=== PATIENT | female | born 1950 | race Caucasian/White ===

== ENCOUNTER 2020-08-19 12:37 | Outpatient (CLI) | payer MEDICARE, SELFPAY ==
--- NOTE | ~2020-08-19 | CT_ITS ---
EXAMINATION: CT abdomen pelvis wo/w con DATE: 08/19/2020 13:38 INDICATION: Microscopic hematuria TECHNIQUE: Computed tomography (CT) of the abdomen and pelvis was performed without and subsequently with 130 cc Omnipaque 350 intravenous contrast. Automated exposure control and iterative reconstructi on technique were employed. Exam dose: 1449.78 mGy-cm total exam DLP. COMPARISON: 08/19/2020 KUB FINDINGS: There is mild discoid atelectasis or scarring in the lower lobes, left greater than right. No consolidation at the lung bases. Normal heart size. No pericardial or pleural effusion. Status post cholecystectomy. There is mild prominence of the intrahepatic and extrahepatic bile ducts , likely due to the cholecystectomy. No pancreatic duct dilatation. No hepatic, pancreatic, splenic, and adrenal or solid renal space-occupying mass lesion is evident. There are several renal cysts, the largest on the right approximately 6.4 mm, the largest on the left approximately 4 mm. No urinary tract calculus or hydroureteronephrosis. The urinary bladder is unremarkable. Retroverted uterus. No adnexal mass lesion is evident. There is atherosclerotic calcification of the abdominal aorta but no aneurysm. No intraperitoneal or retroperitoneal or pelvic mass lesion or adenopathy or ascites. Small sliding hiatal hernia. There are numerous diverticula of the sigmoid colon; no CT evidence of diverticulitis. There is a pro minent amount of fecal material throughout the colon. No bowel obstruction. The appendix appears to b e surgically absent. There is some fluid distended small bowel loops, without abnormal dilatation or wall thickening. No pneumatosis or intraperitoneal free air. There is diffuse osteopenia. There are degenerative changes of the thoracic and lumbar spine. No suspicious osteolytic or osteobla stic lesions. IMPRESSION: Bilateral small renal cysts No urinary tract mass lesion, calculus or hydroureteronephrosis Small sliding hiatal hernia Status post cholecystectomy Diverticulosis of the colon; no CT evidence of diverticulitis Reviewed, dictated and finalized at Location A. Reviewed, dictated and finalized at location B. OR INFRASTRUCTURE ENGINEER
--- NOTE | ~2020-08-19 | XR_ITS ---
EXAMINATION: XR abdomen/kub 1V EXAM DATE: 08/19/2020 13:01 INDICATION: Microscopic hematuria. TECHNIQUE: Frontal projection of the upper abdomen, frontal projection lower abdomen/pelvis for inter pretation. Correlation is made to CT abdomen same day. FINDINGS: There is moderate lumbar levoscoliosis. Moderate amount of colonic stool and gas. No small bowel obstruction. There is no organomegaly. Calcifications in the pelvis are believed to be phlebol iths. There are cholecystectomy clips. IMPRESSION: Unremarkable XR abdomen/kub 1V exam. Reviewed, dictated and finalized at location A. DBIRTH EDUCATOR
[2020-08-19 13:16] LABS: Estimated Glomerular Filt Rate > 60
== END 2020-08-19 12:38 | disposition home or self-care (01) ==
PROVIDERS: PCP Internal Medicine; Visit Provider Nurse Practitioner Family
DX: R31.29 Other microscopic hematuria (principal); Z87.440 Personal history of urinary (tract) infections; N28.1 Cyst of kidney, acquired; Z90.49 Acquired absence of other specified parts of digestive tract; K46.9 Unspecified abdominal hernia without obstruction or gangrene; K44.9 Diaphragmatic hernia without obstruction or gangrene; I70.0 Atherosclerosis of aorta; N85.4 Malposition of uterus; M47.815 Spondylosis without myelopathy or radiculopathy, thoracolumbar region; M41.9 Scoliosis, unspecified
CPT/HCPCS: 74018; 74178; Q9967

== ENCOUNTER 2021-03-11 12:55 | Outpatient (CLI) | payer MEDICARE, SELFPAY ==
--- NOTE | ~2021-03-11 | MM_ITS ---
EXAMINATION: MM screening sally BI w anai HISTORY: Screening mammogram TECHNIQUE: Craniocaudal and mediolateral oblique 3-D tomosynthesis images were obtained and synthetic 2-D images were generated. CAD analysis was submitted and interpreted. COMPARISON: 08/03/2019, 03/13/2018, bilateral digital screening mammogram examinations BREAST PARENCHYMAL COMPOSITION: The breasts are almost entirely fatty. FINDINGS: There is no evidence of suspicious mass, calcification, or architectural distortion to sugg est malignancy in either breast. There has been no suspicious interval change. IMPRESSION: 1. No mammographic evidence of malignancy. 2. Recommend routine screening mammography in one year. BI-RADS Category 1: Negative Reviewed, dictated and finalized at location A.
--- NOTE | ~2021-03-11 | DEXA_ITS ---
Bone Density Report Name: Leana Grayson Age: 71 Sex: Female Ethnicity: White Date of : 1950 Indication: osteopenia; height loss; Referring Provider: Jerrell Javier Study: Bone densitometry was performed. Exam Date: March 11, 2021 Accession number: [id number] Bone Density: Region BMD T-score Z-score Classification AP Spine (L1, L2) 0.858 -1.1 0.9 Osteopenia Femoral Neck (Left) 0.608 -2.2 -0.3 Osteopenia Total Hip (Left) 0.736 -1.7 -0.1 Osteopenia Total Hip Bilateral Avg 0.739 -1.7 -0.1 Osteopenia Femoral Neck (Right) 0.690 -1.4 0.4 Osteopenia Total Hip (Right) 0.741 -1.6 -0.1 Osteopenia World Health Organization criteria for BMD impression classify patients as: Normal (T-score at or above -1.0), Osteopenia (T-score between -1.0 and -2.5), or Osteoporosis (T-score at or below -2.5). 10-year Fracture Risk(1): Major Osteoporotic Fracture 12% Hip Fracture 2.7% Reported Risk Factors: [place] (), Neck BMD=0.608, BMI=29.5 (1) FRAX(R) Version 3.08. Fracture probability calculated for an untreated patient. Fracture probability may be lower if the patient has received treatment. Previous Exams: Region Exam Age BMD T-score BMD Change BMD Change Date g/cm2 vs Baseline vs Previous AP Spine(L1, L2) 03/11/2021 71 0.858 -1.1 0.029(3.6%)* 0.029(3.6%)* 03/13/2018 68 0.829 -1.4 Total Hip(Left) 03/11/2021 71 0.736 -1.7 -0.022(-2.9%) -0.022(-2.9%) 03/13/2018 68 0.757 -1.5 Total Hip(Right) 03/11/2021 71 0.741 -1.6 -0.052(-6.6%)* -0.052(-6.6%)* 03/13/2018 68 0.793 -1.2 *Denotes significance at 95% confidence level, LSC for AP Spine = 0.022 g/cm2, LSC for Total Hip = 0.027 g/cm2 Clinical Information Provided by Patient: Has used the following medications: HRT (i.e. estrogen/hormone therapy), Vitamin D, Calcium Patient maximum height was 65 Menopause Age: 45 Drinks caffeinated beverages Onset of menses at age 13 Number of children 2 Impression: The patient has low bone mass, based on the Left Femoral Neck T-score. The patient has an estimated ten-year risk of hip fracture of 2.7% and an estimated ten-year risk of major fracture of 12%, based on the WHO FRAX algorithm. The BMD for the Total Hip(Right) decreased, changing by -6.6% since the last DXA exam. Discussion: BONE DENSITY IS LOW AT ONE OR MORE SKELETAL SITES. This patient's lowest T-score is low at one or more skeletal sites. It meets the World Health [place]ga
== END 2021-03-11 12:56 | disposition home or self-care (01) ==
PROVIDERS: PCP Internal Medicine; Visit Provider Physician Assistant
DX: Z12.31 Encounter for screening mammogram for malignant neoplasm of breast (principal); Z78.0 Asymptomatic menopausal state; M85.88 Other specified disorders of bone density and structure, other site; M85.852 Other specified disorders of bone density and structure, left thigh; M85.851 Other specified disorders of bone density and structure, right thigh
CPT/HCPCS: 77063; 77067; 77080

== ENCOUNTER 2022-04-29 14:56 | Outpatient (CLI) | payer MEDICARE, SELFPAY ==
--- NOTE | ~2022-04-29 | MM_ITS ---
EXAMINATION: MM screening sally BI w anai HISTORY: Screening mammogram TECHNIQUE: Craniocaudal and mediolateral oblique 3-D tomosynthesis images were obtained and synthetic 2-D images were generated. CAD analysis was submitted and interpreted. COMPARISON: 03/11/2021, 08/03/2019, 03/13/2018 bilateral screening mammogram examinations BREAST PARENCHYMAL COMPOSITION: The breasts are almost entirely fatty. FINDINGS: There is no evidence of suspicious mass, calcification, or architectural distortion to sugg est malignancy in either breast. There has been no suspicious interval change. IMPRESSION: 1. No mammographic evidence of malignancy. 2. Recommend routine screening mammography in one year. BI-RADS Category 1: Negative Reviewed, dictated and finalized at location B.
== END 2022-04-29 14:57 | disposition home or self-care (01) ==
LOC: ANHIMG 15:00
PROVIDERS: PCP Physician Assistant; Visit Provider Obstetrics & Gynecology Gynecologic Oncology
DX: Z12.31 Encounter for screening mammogram for malignant neoplasm of breast (principal)
CPT/HCPCS: 77063; 77067

== ENCOUNTER 2023-04-25 09:06 | Outpatient (CLI) | payer MEDICARE, SELFPAY ==
--- NOTE | ~2023-04-25 | NM_ITS ---
EXAMINATION: NM mateo stress w perfusion DATE: 04/25/2023 14:02 CDT INDICATION: Chest pain TECHNIQUE: Rest images were obtained following intravenous administration of 10.3 mCi Tc99m tetrofosm in (Myoview). The patient was infused intravenously with Lexiscan (regadenoson). Then, 32 mCi Tc99m t etrofosmin (Myoview) was administered intravenously, and stress images were obtained. Data was recons tructed into short axis and horizontal and vertical long axis SPECT images. Gated SPECT images were a lso obtained. COMPARISON: None. FINDINGS: There is no definite reversible or fixed perfusion abnormality to suggest ischemia or infar ction. There is no segmental wall motion abnormality. Left ventricular ejection fraction measures 8 4%. IMPRESSION: 1. No definite ischemia or infarct. 2. Normal left ventricular ejection fraction measuring 84%. Reviewed, dictated and finalized at location A.
--- NOTE | 2023-04-25 09:36 | EST_ITS ---
Patient Info Name: Leana Grayson Age: 73 years : 1950 Gender: Female Ht: 63 in Wt: 157 lbs BSA: 1.80 m2 HR: 55 bpm BP: 140 / 80 mmHg Heart Rhythm: Sinus Rhythm Exam Date: 04/25/2023 10:33 AM Exam Location: [facility] Stress Patient Status: Outpatient Admit Date: 04/25/2023 Staff Ordering Physician: Jerrell Javier PA-C Attending Provider: Jerrell Javier PA-C Exercise Technologist: Elena Laboy CT Exercise Physician: Rickey Crawford DO Exam Type: CA stress mateo w NM Study Info Indications R07.9 - Chest pain, unspecified A regadenoson stress test was performed. Summary 1. 1. Negative lexiscan stress test for ischemic ST changes by ECG criteria. 2. 2. Baseline hypertension. 3. 3. Nuclear scan to follow and will be reported separately. Please correlate with it. 4. 4. Patient informed of the above results. Protocol: Lexiscan Stress ECG Details Stage: REST Duration (min): 13 min : 13 sec HR (bpm): 53 SBP (mmHg): 206 DBP (mmHg): 91 Stage: REST Duration (min): 21 min : 23 sec HR (bpm): 52 SBP (mmHg): 148 DBP (mmHg): 80 Stage: STAGE 1 Duration (min): 1 min : 0 sec HR (bpm): 76 SBP (mmHg): 148 DBP (mmHg): 80 Stage: RECOVERY Duration (min): 1 min : 0 sec HR (bpm): 89 SBP (mmHg): 148 DBP (mmHg): 80 Stage: RECOVERY Duration (min): 2 min : 0 sec HR (bpm): 84 SBP (mmHg): 148 DBP (mmHg): 80 Stage: RECOVERY Duration (min): 3 min : 0 sec HR (bpm): 85 SBP (mmHg): 148 DBP (mmHg): 80 Stage: RECOVERY Duration (min): 4 min : 0 sec HR (bpm): 85 SBP (mmHg): 148 DBP (mmHg): 80 Stage: RECOVERY Duration (min): 4 min : 23 sec HR (bpm): 78 SBP (mmHg): 140 DBP (mmHg): 80 Rest HR: 52 bpm Peak HR: 90 bpm Rest Sys BP: 148 mmHg Peak Sys BP: 140 mmHg Max Pred HR: 147 bpm % Max Pred HR: 61 % Target HR: 125 bpm Max RPP: 12,600 bpm*mmHg Termination Reason: Completed protocol Cardiac Symptoms: Shortness of breath Total Time: 1 min : 0 sec Rest Downey BP: 94 mmHg Peak Downey BP: 80 mmHg Total Dose: 0.4 mg Resting ECG Sinus bradycardia. Stress ECG No ST changes. Arrhythmias None. Report Signatures
== END 2023-04-25 09:07 | disposition home or self-care (01) ==
PROVIDERS: PCP Internal Medicine; Visit Provider Physician Assistant
DX: R07.9 Chest pain, unspecified (principal)
CPT/HCPCS: 78452; 93017; A9502; J2785

== ENCOUNTER 2023-07-07 15:08 | Outpatient (CLI) | payer MEDICARE, SELFPAY ==
--- NOTE | ~2023-07-07 | DEXA_ITS ---
Bone Density Report Name: HARRISON WHITLEY Age: 73 Sex: Female Ethnicity: White Date of : 1950 Indication: osteopenia; height loss; hysterectomy; postmenopausal Referring Provider: SERVANDO DICKERSON Study: Bone densitometry was performed. Exam Date: July 07, 2023 Accession number: [id number] Bone Density: Region BMD T-score Z-score Classification AP Spine(L1-L4) 0.813 -2.1 0.2 Osteopenia Femoral Neck (Left) 0.578 -2.4 -0.5 Osteopenia Total Hip (Left) 0.713 -1.9 -0.2 Osteopenia Femoral Neck (Right) 0.674 -1.6 0.4 Osteopenia Total Hip (Right) 0.682 -2.1 -0.4 Osteopenia Total Hip Mean 0.697 -2.0 -0.3 Osteopenia World Health Organization criteria for BMD impression classify patients as: Normal (T-score at or above -1.0), Osteopenia (T-score between -1.0 and -2.5), or Osteoporosis (T-score at or below -2.5). 10-year Fracture Risk(1): Major Osteoporotic Fracture 15% Hip Fracture 3.9% Reported Risk Factors: [place] (), Neck BMD=0.578, BMI=27.8 (1) FRAX(R) Version 3.08. Fracture probability calculated for an untreated patient. Fracture probability may be lower if the patient has received treatment. Previous Exams: Region Exam Age BMD T-score BMD Change BMD Change Date g/cm2 vs Baseline vs Previous AP Spine (L1-L4) 07/07/2023 73 0.813 -2.1 -0.028 (-3.3%) -0.028 (-3.3%) 03/13/2018 68 0.841 -1.9 Total Hip(Left) 07/07/2023 73 0.713 -1.9 -0.045 (-5.9%) -0.023 (-3.2%) 03/11/2021 71 0.736 -1.7 -0.022 (-2.9%) -0.022 (-2.9%) 03/13/2018 68 0.757 -1.5 Total Hip(Right) 07/07/2023 73 0.682 -2.1 -0.111 (-14.0% -0.059 (-7.9%) 03/11/2021 71 0.741 -1.6 -0.052 (-6.6%) -0.052 (-6.6%) 03/13/2018 68 0.793 -1.2 *Denotes significance at 95% confidence level, LSC for AP Spine = 0.022 g/cm2, LSC for Total Hip = 0.027 g/cm2 Clinical Information Provided by Patient: Has used the following medications: Vitamin D, Calcium Has the following medical conditions: Hysterectomy Patient maximum height was 64 Menopause Age: 45 Onset of menses at age 13 Number of children 2 Impression: The patient has low bone mass, based on the Left Femoral Neck T-score. The patient has an estimated ten-year risk of hip fracture of 3.9% and an estimated ten-year risk of major fracture of 15%, based on the WHO FRAX algorithm. The BMD for the AP Spine (L1-L4) decreased, changing by -3.3% since the last DXA exam. The BMD f
--- NOTE | ~2023-07-07 | MM_ITS ---
EXAMINATION: MM screening [facility] BI w anai HISTORY: Screening mammogram TECHNIQUE: Craniocaudal and mediolateral oblique 3-D tomosynthesis images were obtained and synthetic 2-D images were generated. CAD analysis was submitted and interpreted. COMPARISON: 04/29/2022, 03/11/2021, 08/03/2019 BREAST PARENCHYMAL COMPOSITION: There are scattered areas of fibroglandular density. FINDINGS: No suspicious mass, calcification, or architectural distortion are identified in either sandy ast to suggest malignancy. There has been no suspicious interval change. IMPRESSION: 1. No mammographic evidence of malignancy. 2. Recommend routine screening mammography in one year. BI-RADS Category 1: Negative Reviewed, dictated and finalized at location A.
== END 2023-07-07 15:09 | disposition home or self-care (01) ==
PROVIDERS: PCP Internal Medicine; Visit Provider Obstetrics & Gynecology Gynecologic Oncology
DX: Z12.31 Encounter for screening mammogram for malignant neoplasm of breast (principal); M85.88 Other specified disorders of bone density and structure, other site; M85.852 Other specified disorders of bone density and structure, left thigh; M85.851 Other specified disorders of bone density and structure, right thigh
CPT/HCPCS: 77063; 77067; 77080

== ENCOUNTER 2024-03-06 14:01 | Outpatient (CLI) | payer MEDICARE, SELFPAY ==
--- NOTE | ~2024-03-06 | XR_ITS ---
XR abdomen/kub 1V 03/06/2024 14:28 INDICATION: Left renal stone TECHNIQUE: KUB COMPARISON: 08/19/2020 FINDINGS: Bowel gas pattern is normal. Moderate colonic fecal loading. There are cholecystectomy clip s. Colonic fecal loading. There is no evidence of free air, mass, organomegaly, ascites or obstructio n. No abnormal calculi are seen. The bones appear intact. There are cholecystectomy clips. There is levoscoliosis of the lumbar spine. IMPRESSION: 1: No acute abdominal abnormality identified. Reviewed, dictated and finalized at location B.
== END 2024-03-06 14:02 | disposition home or self-care (01) ==
LOC: ANHIMG 14:02
PROVIDERS: PCP Internal Medicine; Visit Provider Nurse Practitioner Family
DX: N20.0 Calculus of kidney (principal)
CPT/HCPCS: 74018

== ENCOUNTER 2024-07-18 13:18 | Outpatient (CLI) | payer MEDICARE, SELFPAY ==
--- NOTE | ~2024-07-18 | MM_ITS ---
EXAMINATION: MM screening [facility] BI w anai HISTORY: Screening TECHNIQUE: Craniocaudal and mediolateral oblique 3-D tomosynthesis images were obtained and synthetic 2-D images were generated. CAD analysis was submitted and interpreted. COMPARISON: Comparison to multiple prior studies sequentially, with oldest reviewed study dated 05/2017. BREAST PARENCHYMAL COMPOSITION: Not Dense: The breasts are almost entirely fatty. FINDINGS: There is no evidence of suspicious mass, calcification, or architectural distortion to sugg est malignancy in either breast. There has been no suspicious interval change. IMPRESSION: 1. No mammographic evidence of malignancy. 2. Recommend routine screening mammography in one year. BI-RADS Category 1: Negative Reviewed, dictated and finalized at location B.
== END 2024-07-18 13:19 | disposition home or self-care (01) ==
LOC: ANHIMG 13:20
PROVIDERS: PCP Family Medicine; Visit Provider Student in an Organized Health Care Education/Training Program
DX: Z12.31 Encounter for screening mammogram for malignant neoplasm of breast (principal)
CPT/HCPCS: 77063; 77067

== ENCOUNTER 2025-02-14 00:39 | Day surgery (SDC) | payer MEDICARE, SELFPAY ==
[2025-02-05 10:04] VITALS: BMI 26.6
--- OUTSIDE RECORDS SUMMARY | 2025-02-14 00:42 | XMS_ITS | Encounter Summary ---
Author Organization [facility] Address 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 Gender Identity Not on file Sexual Orientation Not on file documented as of this encounter Plan of Treatment Not on file documented as of this encounter Procedures Procedure Name Priority Date/Time Associated Diagnosis Comments US BREAST UNI LEFT COMPLETE Timed Study 05/14/2009 9:31 AM CDT MAMMO DIAGNOSTIC UNI LEFT W OR WO CAD Timed Study 05/14/2009 9:31 AM CDT documented in this encounter Results * US BREAST UNILATERAL LEFT (05/14/2009 9:31 AM CDT) Anatomical Region Laterality Modality Breast Left Other 05/14/2009 9:31 AM CDT Narrative 05/15/2009 7:34 AM CDT [facility] [address] [place], [place] [address] Admit Date: 05/14/2009 HARRISON MARCUM Sex: F Admit Prov: CHAVO TONEY Date: 1950 Primary Care Prov: OMERO BARRAGAN CMRN: [id number] [id number] IM[facility] Ordering Prov: CHAVO TONEY Accession Number: [id number] Interpretation LEFT DIAGNOSTIC DIGITAL MAMMOGRAMS WITH COMPUTER ASSISTED DIAGNOSIS AND LEFT BREAST ULTRASOUND 05/14/2009 HISTORY: The patient had an abnormal screening mammogram which demonstrated a left breast mass. Technique: Left breast full field digital diagnostic mammogram was performed. CAD was utilized. Comparison is made with previous studies dated May 2009, May 2008, April 2007 and May 2005. BREAST COMPOSITION: Scattered fibroglandular densities. Findings: Within the upper inner quadrant of the left breast, a 6 mm partially circumscribed and partially obscured mass is identified. Ultrasound of this finding is warranted. No other dominant masses, areas of asymmetry or suspicious clustered microcalcifications are identified within the left breast. The CAD system detects no other significant abnormalities. Ultrasound of the upper quadrant of the left breast was performed and demonstrates a 5 x 6 mm cluster of cysts. Overall assessment: BI-RADS category 2. Benign findings. Recommendation: Annual mammography is recommended. Dictated by: SRI BOTELLO Electronically signed by: SRI BOTELLO 05/15/2009 07:34 Transcribed: 05/14/2009 10:07 AMK Procedure Note Sri Botello - 05/15/2009 [facility] [address] [place], [place] [address] Admit Date: 05/14/2009 HARRISON MARCUM Sex: F Admit Prov: CHAVO TONEY Date: 1950 Primary Care Prov: YUNG OMERO Roque CMRN: [id number] [facility]: [id number] IMAGING SERVICES Ordering Prov: BRAVOCHAVO MARTÍNEZ Interpretation LEFT DIAGNOSTIC DIGITAL MAMMOGRAMS WITH COMPUTER ASSISTED DIAGNOSISAND LEFT BREAST ULTRASOUND 05/14/2009 HISTORY: The patient had an abnormal screening mammogram whichdemonstrated a left breast mass. Technique: Left breast full field digital diagnostic mammogram was performed. CAD was utilized. Comparison is made with previous studiesdated May 2009, May 2008, April 2007 and May 2005. BREAST COMPOSITION: Scattered fibroglandular densities. Findings: Within the upper inner quadrant of the left breast, a 6mm partially circumscribed and partially obscured mass is identified. Ultrasound of this finding is warranted. No other dominant masses,areas of asymmetry or suspicious clustered microcalcifications are identifiedwithin the left breast. The CAD system detects no other significantabnormalities. Ultrasound of the upper quadrant of the left breast was performedand demonstrates a 5 x 6 mm cluster of cysts. Overall assessment: BI-RADS category 2. Benign findings. Recommendation: Annual mammography is recommended. Dictated by: SRI BOTELLO Electronically signed by: SRI BOTELLO 05/15/2009 07:34 Transcribed: 05/14/2009 10:07 AMK us Chavo Toney MD US ORDERABLES Final Result * MAMMO DIGITAL DIAG UNI LEFT (05/14/2009 9:31 AM CDT) Anatomical Region Laterality Modality Breast Left Other 05/14/2009 9:31 AM CDT Narrative 05/15/2009 7:34 AM CDT [address] [address] Admit Date: 05/14/2009 HARRISON MARCUM Sex: F Admit Prov: CHAVO TONEY Date: 1950 Primary Care Prov: OMERO BARRAGAN CMRN: [id number] Room: [facility] SSN: [id number] IMAGING SERVICES Ordering Prov: CHAVO TONEY Accession Number: [id number] Interpretation LEFT DIAGNOSTIC DIGITAL MAMMOGRAMS WITH COMPUTER ASSISTED DIAGNOSIS AND LEFT BREAST ULTRASOUND 05/14/2009 HISTORY: The patient had an abnormal screening mammogram which demonstrated a left breast mass. Technique: Left breast full field digital diagnostic mammogram was performed. CAD was utilized. Comparison is made with previous studies dated May 2009, May 2008, April 2007 and May 2005. BREAST COMPOSITION: Scattered fibroglandular densities. Findings: Within the upper inner quadrant of the left breast, a 6 mm partially circumscribed and partially obscured mass is identified. Ultrasound of this finding is warranted. No other dominant masses, areas of asymmetry or suspicious clustered microcalcifications are identified within the left breast. The CAD system detects no other significant abnormalities. Ultrasound of the upper quadrant of the left breast was performed and demonstrates a 5 x 6 mm cluster of cysts. Overall assessment: BI-RADS category 2. Benign findings. Recommendation: Annual mammography is recommended. Assessment BIRADS: 2-Benign finding Recommendation: Normal interval follow-up Dictated by: SRI BOTELLO Electronically signed by: SRI BOTELLO 05/15/2009 07:34 Transcribed: 05/14/2009 10:07 AMK Procedure Note Sri Botello - 05/15/2009 [id number] [place], [place] [address] Admit Date: 05/14/2009 HARRISON MARCUM Sex: F Admit Prov: CHAVO TONEY Date: 1950 Primary Care Prov: YUNG OMERO J CMRN: [id number] [id number] IMAGING SERVICES Ordering Prov: CHAVO TONEY Interpretation LEFT DIAGNOSTIC DIGITAL MAMMOGRAMS WITH COMPUTER ASSISTED DIAGNOSISAND LEFT BREAST ULTRASOUND 05/14/2009 HISTORY: The patient had an abnormal screening mammogram whichdemonstrated a left breast mass. Technique: Left breast full field digital diagnostic mammogram was performed. CAD was utilized. Comparison is made with previous studiesdated May 2009, May 2008, April 2007 and May 2005. BREAST COMPOSITION: Scattered fibroglandular densities. Findings: Within the upper inner quadrant of the left breast, a 6mm partially circumscribed and partially obscured mass is identified. Ultrasound of this finding is warranted. No other dominant masses,areas of asymmetry or suspicious clustered microcalcifications are identifiedwithin the left breast. The CAD system detects no other significantabnormalities. Ultrasound of the upper quadrant of the left breast was performedand demonstrates a 5 x 6 mm cluster of cysts. Overall assessment: BI-RADS category 2. Benign findings. Recommendation: Annual mammography is recommended. Assessment BIRADS: 2-Benign finding Recommendation: Normal interval follow-up Dictated by: SRI BOTELLO Electronically signed by: SRI BOTELLO 05/15/2009 07:34 Transcribed: 05/14/2009 10:07 AMK us Chavo Toney MD MAMMO ORDERABLES Final Result documented in this encounter Visit Diagnoses Diagnosis Abnormal mammogram, unspecified documented in this encounter Care Teams Geotechnical Engineer Relationship Specialty Start Date End Date Christoph Delarosa MD PCP - General Internal Medicine 06/19/14 documented as of this encounter
--- OUTSIDE RECORDS SUMMARY | 2025-02-14 00:42 | XMS_ITS | Encounter Summary ---
Author Organization [facility] Address 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
--- OUTSIDE RECORDS SUMMARY | 2025-02-14 00:42 | XMS_ITS | Encounter Summary ---
Author Organization [facility] Address 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 Gender Identity Not on file Sexual Orientation Not on file documented as of this encounter Plan of Treatment Not on file documented as of this encounter Procedures Procedure Name Priority Date/Time Associated Diagnosis Comments MAMMO SCREEN BILAT W OR WO CAD Routine 05/05/2009 12:34 PM CDT documented in this encounter Results * MAMMO DIGITAL SCREEN BILAT (05/05/2009 12:34 PM CDT) Anatomical Region Laterality Modality Breast Bilateral Other 05/05/2009 12:3 4 PM CDT Narrative 05/07/2009 8:23 AM CDT [address] [address] Admit Date: 05/05/2009 HARRISON MARCUM Sex: F Admit Prov: CHAVO TONEY Date: 1950 Primary Care Prov: OMERO BARRAGAN CMRN: [id number] Room: SMITHA N: [id number] IMAGING SERVICES Ordering Prov: CHAVO TONEY Accession Number: [id number] Interpretation Bilateral full field digital screening mammograms with computer aided diagnosis History: Routine screening. Technique: Craniocaudal and mediolateral oblique projections of both breasts were obtained. CAD was utilized. Comparison is made with previous studies dated 05/2008, 04/2007 and 05/2005. BREAST COMPOSITION: Scattered fibroglandular densities. Findings: A mass is identified in the medial aspect of the left breast. This is believed to be at the level of the nipple on the mediolateral oblique projection. The patient should return for additional images and possibly ultrasound of this finding. No other dominant masses, areas of asymmetry or suspicious clustered microcalcifications are identified within either breast. The CAD system detects no other significant abnormalities. Overall assessment: BI-RADS category 0. Needs additional imaging evaluation. Recommendation: It is recommended the patient return for additional images of the suspected mass in upper inner quadrant of the left breast. Assessment BIRADS: 0-Incomplete: Need additional imaging evaluation Recommendation: Additional projections Dictated by: SRI BOTELLO Electronically signed by: SRI BOTELLO 05/07/2009 08:22 Transcribed: 05/06/2009 20:06 AMK Procedure Note Sri Botello - 05/07/2009 [address] [place], [place] [address] Admit Date: 05/05/2009 HARRISON MARCUM Sex: F Admit Prov: CHAVO TONEY Date: 1950 Primary Care Prov: OMERO BARRAGAN CMRN: [id number] Room: Miriam SSN: [id number] IMAGING SERVICES Ordering Prov: CHAVO TONEY Interpretation Bilateral full field digital screening mammograms with computeraided diagnosis History: Routine screening. Technique: Craniocaudal and mediolateral oblique projections ofboth breasts were obtained. CAD was utilized. Comparison is made withprevious studies dated 05/2008, 04/2007 and 05/2005. BREAST COMPOSITION: Scattered fibroglandular densities. Findings: A mass is identified in the medial aspect of the leftbreast. This is believed to be at the level of the nipple on themediolateral oblique projection. The patient should return for additional imagesand possibly ultrasound of this finding. No other dominant masses, areasof asymmetry or suspicious clustered microcalcifications are identifiedwithin either breast. The CAD system detects no other significantabnormalities. Overall assessment: BI-RADS category 0. Needs additional imaging evaluation. Recommendation: It is recommended the patient return for additionalimages of the suspected mass in upper inner quadrant of the left breast. Assessment BIRADS: 0-Incomplete: Need additional imagingevaluation Recommendation: Additional projections Dictated by: SRI BOTELLO Electronically signed by: SRI BOTELLO 05/07/2009 08:22 Transcribed: 05/06/2009 20:06 AMK Chavo Toney MD MAMMO ORDERABLES Final Result documented in this encounter Visit Diagnoses Diagnosis Other screening mammogram documented in this encounter Care Teams Yarn Weight And Strength Tester Relationship Specialty Start Date End Date Christoph Delarosa MD PCP - General Internal Medicine 06/19/14 documented as of this encounter
--- OUTSIDE RECORDS SUMMARY | 2025-02-14 00:42 | XMS_ITS | Encounter Summary ---
Author Organization [facility] Address [address] [place] [address] Care Team Providers Care Caster Investment Casting Name Role Phone Christoph Delarosa MD Primary Care Provider [phone] Encounter Details Date Type Department Care Team (Late st Contact Info) Description 05/19/2005 Outpatient Historical HIS 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
--- OUTSIDE RECORDS SUMMARY | 2025-02-14 00:42 | XMS_ITS | Encounter Summary ---
Author Organization [facility] Address 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 Gender Identity Not on file Sexual Orientation Not on file documented as of this encounter Plan of Treatment Not on file documented as of this encounter Procedures Procedure Name Priority Date/Time Associated Diagnosis Comments MAMMO SCREEN BILAT W OR WO CAD Routine 05/03/2008 9:35 AM CDT documented in this encounter Results * MAMMO DIGITAL SCREEN BILAT (05/03/2008 9:35 AM CDT) Anatomical Region Laterality Modality Breast Bilateral Other 05/03/2008 9:35 AM CDT Narrative 05/04/2008 2:25 PM CDT [address] [address] Admit Date: 05/03/2008 HARRISON MARCUM Sex: F Admit Prov: CHAVO TONEY Date: 1950 Primary Care Prov: OMERO BARRAGAN CMRN: [id number] Room: SMITHA N: [id number] IMAGING SERVICES Ordering Prov: CHAVO TONEY Accession Number: [id number] Interpretation BILATERAL FULL FIELD DIGITAL SCREENING MAMMOGRAM WITH CAD. Date: 05/03/2008 History: Routine Screening. Technique: Full field digital craniocaudal and mediolateral oblique projections of both breasts were obtained. Computer aided diagnosis was performed. Comparison: 04/2007, 05/2006, 05/2005, 04/2004 Breast Parenchymal Composition: Scattered fibroglandular densities. Findings: No suspicious mass, suspicious microcalcifications, or architectural distortion in either breast is identified. Since the prior study, there has been no significant interval change. The computer aided diagnosis detects no significant abnormality. Overall Assessment: BI-RADS category 1: Negative. Recommendation: Annual mammography is recommended. Assessment BIRADS: 1-Negative Recommendation: Normal interval follow-up Dictated by: SRI BOTELLO Electronically signed by: SRI BOTELLO 05/04/2008 14:24 Transcribed: 05/03/2008 16:14 AMK Procedure Note Sri Botello - 05/04/[address] [address] Admit Date: 05/03/2008 HARRISON MARCUM Sex: F Admit Prov: CHAVO TONEY Date: 1950 Primary Care Prov: OMERO BARRAGAN CMRN: [id number] Room: SMITHA N: [id number] IMAGING SERVICES Ordering Prov: CHAVO TONEY Interpretation BILATERAL FULL FIELD DIGITAL SCREENING MAMMOGRAM WITH CAD. Date: 05/03/2008 History: Routine Screening. Technique: Full field digital craniocaudal and mediolateral oblique projections of both breasts were obtained. Computer aided diagnosiswas performed. Comparison: 04/2007, 05/2006, 05/2005, 04/2004 Breast Parenchymal Composition: Scattered fibroglandular densities. Findings: No suspicious mass, suspicious microcalcifications, or architectural distortion in either breast is identified. Since theprior study, there has been no significant interval change. The computeraided diagnosis detects no significant abnormality. Overall Assessment: BI-RADS category 1: Negative. Recommendation: Annual mammography is recommended. Assessment BIRADS: 1-Negative Recommendation: Normal interval follow-up Dictated by: SRI BOTELLO Electronically signed by: SRI BOTELLO 05/04/2008 14:24 Transcribed: 05/03/2008 16:14 AMK us Chavo Toney MD MAMMO ORDERABLES Final Result documented in this encounter Visit Diagnoses Diagnosis Other screening mammogram documented in this encounter Care Teams Manager Plant Relationship Specialty Start Date End Date Christoph Delarosa MD PCP - General Internal Medicine 06/19/14 documented as of this encounter
--- OUTSIDE RECORDS SUMMARY | 2025-02-14 00:42 | XMS_ITS | Encounter Summary ---
Author Organization [facility] Address [address] [place] [address] Care Team Providers Care Traffic Survey Technician Name Role Phone Christoph Delarosa MD Primary Care Provider [phone] Encounter Details Date Type Department Care Team (Late st Contact Info) Description 02/16/2007 Outpatient Historical [facility] 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
--- OUTSIDE RECORDS SUMMARY | 2025-02-14 00:42 | XMS_ITS | Encounter Summary ---
Author Organization [facility] Address 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
--- OUTSIDE RECORDS SUMMARY | 2025-02-14 00:42 | XMS_ITS | Encounter Summary ---
Author Organization [facility] Address 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
--- OUTSIDE RECORDS SUMMARY | 2025-02-14 00:42 | XMS_ITS | Clinical Summary ---
Author Organization [facility] Address [address] [place] [address] Phone Care Team Providers Care Car Wrecker Name Role Phone Christoph Delarosa MD Primary Care Provider [phone] Allergies Active Allergy Reactions Criticality Noted Date Comments Clindamycin Hives High 06/29/2018 Mold Other (See Comments) Low 05/22/2018 Medications Vit A,C,E-Zinc-Brando er (Vision Formula, H-I-E-Zn-brando,) 14,320226-200 fzxt-bi-gqtb Capsule Take by mouth. 05/22/2018 Active coenzyme Q10 Capsule Take 1 Capsule by mouth. Active simvastatin (ZOCOR) 10 mg tablet TAKE 1 TABLET BY MOUTH ONCE DAILY 02/15/2020 Active omega-3 fatty acids-fish oil (Fish Oil Pearls) 150-400 mg Capsule Take by mouth. 05/22/2018 Active losartan (COZAAR) 50 mg tablet TAKE 1 TABLET BY MOUTH ONCE DAILY 03/14/2020 Active cycloSPORINE (Restasis) 0.05 % emulsion INSTILL 1 DROP INTO EACH EYE TWICE DAILY DIRECTED 08/27/2019 Active cyanocobalamin, vitamin B-12, 1,500 mcg Tablet, Rapid Dissolve Take 1 Tablet by mouth. 05/22/2018 Active atenoloL (TENORMIN) 25 mg tablet TAKE 1 TABLET BY MOUTH ONCE DAILY 01/02/2020 Active aspirin (ECOTRIN EC) 81 mg Tablet, Delayed Release (E.C.) Take 1 Tablet by mouth every 24 hours. Active ascorbic acid (VITAMIN C) 500 mg Tablet, Chewable Take 1 Tablet by mouth. 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 Gender Identity Not on file Sexual Orientation Not on file Occupation Industry Job Start Date Job End Date Not on file Not on file Not on file Not on file Last Filed Vital Signs Vital Sign Reading Time Taken Comments Blood Pressure 122/76 06/27/2020 9:32 AM CDT Pulse - - Temperature - - Respiratory Rate - - Oxygen Saturation - - Inhaled Oxygen Concentration - - Weight 71.7 kg (158 lb) 06/27/2020 9:32 AM CDT Height 160 cm (5' 3 ) 06/27/2020 9:32 AM CDT Body Mass Index 27.99 06/27/2020 9:32 AM CDT Plan of Treatment Health Maintenance Due Date Last Done Comments COLORECTAL SCREENING 1995 Colorectal Cancer Screening 1995 FIT-DNA Q 3 years 1995 FIT/FOBT Q 1 year 1995 Flex Sig/CT Colonography Q 5 years 1995 BREAST CANCER SCREENING 08/03/2020 08/03/20 19, 01/16/2016, 07/08/2014, Additional history exists PNEUMOCOCCAL VACCINE 50+ YEA RS (3 of 3 - PCV20 or PCV21) 12/21/2020 12/22/2015, 12/09/2014 DTAP/TDAP/TD VACCINES (2 - T d or Tdap) 02/16/2023 02/16/2013 OSTEOPOROSIS SCREENING 03/13/2023 8, 07/08/2014, 07/06/2012 INFLUENZA VACCINE (#1) 2024 9, 07/18/2018, 07/13/2017 RSV VACCINE (60+ or ) (1 - 1-dose 75+ series) 2025 ZOSTER VACCINE Completed 10/01/2019, 05/09/2019 Procedures Procedure Name Priority Date/Time Associated Diagnosis Comments MAMMO SCREEN BILAT W OR WO CAD Routine 08/03/2019 XR DEXA BONE DENSITY AXIAL 1 OR MORE SITES Routine 03/13/2018 from Last 3 Months or Most Recently Relevant to Health Maintenance Results * MAMMO SCREEN BILAT W OR WO CAD (08/03/2019) Anatomical Region Laterality Modality Breast Bilateral Mammography Chavo Toney MD MAMMO ORDERABLES Edite d Result - Final * XR DEXA BONE DENSITY AXIAL 1 OR MORE SITES (03/13/2018) Anatomical Region Laterality Modality Other us Robert Rebolledo MD DIAGNOSTIC IMAGING ORDERABLE S Edited Result - Final from Last 3 Months or Most Recently Relevant to Health Maintenance Insurance [facility] Address: [place] [address] Care Teams Car Wrecker Relationship Specialty Start Date End Date Christoph Delarosa MD PCP - General Internal Medicine 06/19/14
--- OUTSIDE RECORDS SUMMARY | 2025-02-14 00:42 | XMS_ITS | Encounter Summary ---
Author Organization [facility] Address [address] [place] [address] Care Team Providers Care Turner In Name Role Phone Christoph Delarosa MD Primary Care Provider [phone] Encounter Details Date Type Department Care Team (Latest Contact Info) Description 02/16/2007 Outpatient Historical HIS C[employer] FLASH [place] [address] [facility] [address] [place] [address] Mitral Valve Disorders (Primary Dx) Social History Tobacco Use Types Packs/Day Years Used Date Smoking Tobacco: Never Assessed Comments Unknown Sex and Gender Information Value Date Recorded Sex Assigned at Not on file 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
--- OUTSIDE RECORDS SUMMARY | 2025-02-14 00:42 | XMS_ITS | Encounter Summary ---
Author Organization [facility] Address [address] [place] [address] Care Team Providers Care Tea Taster Name Role Phone Christoph Delarosa MD Primary Care Provider [phone] Rosy Mathew MD Unavailable [phone] Rosy Mathew MD Primary Care Provider [phone] Jerrell Javier-C Primary Care Provider [phone] [facility] Primary Care Provider + Angela Cottrell 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 [place] [address] documented as of this encounter Visit Diagnoses Not on filedocumented in this encounter Care Teams Tea Taster Relationship Specialty Start Date End Date Christoph Delarosa MD PCP - General 08/01/14 10/29/18 Rosy Mathew MD PCP - Med Group - [facility] Attributed Provider INTERNAL MEDICINE 12/01/18 10/03/20 Rosy Mathew MD PCP - General INTERNAL MEDICINE 05/07/19 02/11/20 Jerrell Javier PA-C PCP - General PHYSICIAN REVENUE ENFORCEMENT AGENT 02/12/20 03/05/24 Angela Cottrell, VIDEO PRODUCTION ASSISTANT-BC [id number] [address], [address] [place], [place] [id number] PCP - General Nurse Practitioner Family 03/07/24 11/28/24 Angela Cottrell VIDEO PRODUCTION ASSISTANT-BC [id number] [address], [address] [place] [address] PCP - General Nurse Practitioner Family 03/06/24 03/06/24 [place] [id number] [address] [place] [address] PCP - General FAMILY PRACTICE 11/29/24 documented as of this encounter
--- OUTSIDE RECORDS SUMMARY | 2025-02-14 00:42 | XMS_ITS | Encounter Summary ---
Author Organization [facility] Address [address] [place] [address] Care Team Providers Care Paper Roller Name Role Phone Christoph Delarosa MD Primary Care Provider [phone] Rosy Mathew MD Unavailable [phone] Rosy Mathew MD Primary Care Provider [phone] Jerrell Javier-C Primary Care Provider [phone] Angela Cottrell [facility] Primary Care Provider + Angela Cottrell [facility] Primary Care Provider + Ana Laura Cassidy MD Primary Care Provider [phone] Encounter Details Date Type Department Care Team (Latest Contact Info) Description 06/26/2018 Abstract [facility] Hugo Blandon MD Social History Tobacco Use Types Packs/Day Years Used Date Smoking Tobacco: Never Comments Unknown Sex and Gender Information Value Date Recorded Sex Assigned at Female 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 [place] [address] documented as of this encounter Visit Diagnoses Not on filedocumented in this encounter Care Teams Paper Roller Relationship Specialty Start Date End Date Christoph Delarosa MD PCP - General 08/01/14 10/29/18 Rosy Mathew MD PCP - Med Group - [facility] Attributed Provider INTERNAL MEDICINE 12/01/18 10/03/20 Rsoy Mathew MD PCP - General INTERNAL MEDICINE 05/07/19 02/11/20 Jerrell Javier PA-C PCP - General PHYSICIAN SIDING MECHANIC 02/12/20 03/05/24 Angela Cottrell, ONLINE EDUCATION MANAGER-BC [address] [address], [address] [place], [place] [id number] PCP - General Nurse Practitioner Family 03/07/24 11/28/24 Angela Cottrell ONLINE EDUCATION MANAGER-BC [address] [address], [address] [place] [address] PCP - General Nurse Practitioner Family 03/06/24 03/06/24 [place] [address] [address] [place] [address] PCP - General FAMILY PRACTICE 11/29/24 documented as of this encounter
--- OUTSIDE RECORDS SUMMARY | 2025-02-14 00:43 | XMS_ITS | Encounter Summary ---
Author Organization [facility] Address [address] 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
--- OUTSIDE RECORDS SUMMARY | 2025-02-14 00:43 | XMS_ITS | Encounter Summary ---
Author Organization [facility] Address [address] 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
--- OUTSIDE RECORDS SUMMARY | 2025-02-14 00:43 | XMS_ITS | Clinical Summary ---
Author Organization [facility] Address [address] [place] [address] Care Team Providers Care Service Cashier Name Role Phone Ana Laura Cassidy MD Primary Care Provider [phone] Allergies Active Allergy Reactions Criticality Noted Date Comments Clindamycin Hives High 06/29/2018 Molds & Smuts Runny Nose,Sneezing Low 05/22/2018 Medications Ascorbic Acid (VITAMIN C) 500 MG Chew Tab Chew 1 tablet by mouth daily. 8 Active Calcium Carbonate-Vit D-Min (CALCIUM 600+D3 PLUS MINERALS) 600-800 MG-UNIT Chew Tab Chew 1 tablet by mouth daily. 8 Active Cyanocobalamin 1500 MCG TABLET DISPERSIBLE Take 1 tablet by mouth daily. 8 Active [place]-3 Fatty Acids (FISH OIL PEARLS) 150 MG Cap 8 Active Coenzyme Q10 (COQ-10) 10 MG Cap Take 1 capsule by mouth daily. Active RESTASIS 0.05 % ophthalmic emulsion INSTILL 1 DROP INTO EACH EYE TWICE DAILY DIRECTED 3 9 Active Cholecalciferol (VITAMIN D3) 25 MCG (1000 UT) Cap Ac tive atenolol (TENORMIN) 25 MG tabletIndications :Essential hypertension Take 1 tablet (25 mg total) by mouth daily. 90 tablet 3 5 Active losartan (COZAAR) 50 MG tabletIndications :Essential hypertension Take 1 tablet (50 mg total) by mouth daily. 90 tablet 3 Active aspirin EC (ECOTRIN) 81 MG tablet Take 1 tablet (81 mg total) by mouth daily. Active carboxymethylcell ulose PF (THERATEARS PF) 0.25 % ophthalmic solution Apply 1 drop to eye. Active Active Problems Problem Noted Date Diagnosed Date Vertigo 03/08/2024 Osteopenia after menopause 03/08/2024 Schatzki's ring 03/08/2024 Diverticulosis of colon 03/08/2024 Solar lentigo 03/08/2024 Erosive osteoarthritis of right hand 06/07/2018 Mixed hyperlipidemia 05/22/2018 Essential hypertension 05/22/2018 Joint pain in fingers of right hand 05/22/2018 Resolved Problems Problem Noted Date Diagnosed Date Resolved Date Bicipital tendinitis 07/05/2018 024 Shoulder pain, right 07/05/2018 024 DRUJ (distal radioulnar joint) sprain 06/07/2018 03/08/2024 ECU (extensor carpi ulnaris) , subluxation/dislocation 06/07/2018 03/08/2024 Rectal itching 05/29/2018 03/08/2024 Abnormal vaginal bleeding 05/22/2018 Dysuria 05/22/2018 03/08/2024 Neuropathy of hand 05/22/2018 4 Wears glasses 05/22/2018 06/13/2020 Encounter for preventive health examination 05/19/2018 06/13/2020 Encounters Date Type Department Care Team Description 01/09/2025 Scan [facility] Scanned, Doc Med Group 01/08/2025 Scan [facility] Scanned, Doc Med Group 01/08/2025 Telephone [facility] Family & Internal Medicine [address] [address] Ana Laura Cassidy MD Forms 01/07/2025 1:40 PM CDT Office Visit [facility] Internal Medicine [address] [address] Angela Cottrell, COMMODITY BUYER- Medicare Wellness 01/07/2025 Travel 12/10/2024 8:40 AM CDT Office Visit [facility] Family & Internal Medicine [address] [phone] Elena Rodriguez PA Eye Problem (Pt c/o Lt eye feels like there is something in her eye, started Tuesday. Does take restasis ) 12/10/2024 8:30 AM CDT Laboratory Only [facility] [address] [phone] Ana Laura Cassidy MD 12/10/2024 Travel 12/03/2024 1:40 PM CONFERENCE INTERPRETER Office Visit [facility] [address] [address] Ana Laura Cassidy MD Meet and Greet Provider 12/03/2024 Travel from Last 3 Months Immunizations Immunization Administration Dates Next Due Fluzone High Dose - >Age 65 (Prefilled Syringe) 06/21/2023,05/21/2022,07/02/2020,2018,07/18/2018,07/13/2017 Influenza Adult (Generic) 07/18/2014 Pneumococcal (Capvaxive - PCV 21) 01/08/2025 Pneumococcal (Prevnar 13) 12/22/2015 Pneumovax 23 25 Mcg/0.5Ml Ij Inj 12/09/2014 Shingrix 10/01/2019,05/09/2019 Tdap (Adacel) 02/16/2013 Tdap (Generic) 05/17/2023 Zoster (Zostavax) [address] Unt/0.65Ml 10/04/2012 Family History Medical History Relation Comments Heart Disease Father CABG Cancer Maternal Grandfather Lung Cancer Mother Diabetes Other 1 great aunt Relation Status Comments Father Maternal Grandfather Mother Other 1 Other 2 Alive Social History Tobacco Use Types Packs/Day Years Used Date Smoking Tobacco: Never Smokeless Tobacco: Never Tobacco Cessation:Counseling Given: No Alcohol Use Standard Drinks/Week Comments Not Currently 0 (1 standard drink = 0.6 oz pur e alcohol) occasional wine holidays AUDIT-C Answer Date Recorded Q1: How often do you have a drink containing alcohol? Never 01/07/2025 Q2: How many drinks containi ng alcohol do you have on a typical day when you are drinking? Patient does not drink Q3: How often do you have si x or more drinks on one occasion? Never 01/07/2025 PHQ-2 Answer Date Recorded Patient Health Questionnaire-2 Score 0 01/07/2025 Comments No Sex and Gender Information Value Date Recorded Sex Assigned at Female 12/03/2024 1:23 PM CONFERENCE INTERPRETER Legal Sex Female 10:54 PM CDT Gender Identity Female 01/07/2025 1:23 PM CDT Sexual Orientation Not on file Last Filed Vital Signs Vital Sign Reading Time Taken Comments Blood Pressure 112/64 01/07/2025 1:28 PM CDT Pulse 56 01/07/2025 1:28 PM CDT Temperature 36.1 C (97 F) 01/07/2025 1:28 PM CDT Respiratory Rate 16 01/07/2025 1:28 PM CDT Oxygen Saturation 96% 01/07/2025 1:28 PM CDT Inhaled Oxygen Concentration - - Weight 71.7 kg (158 lb) 01/07/2025 1:28 PM CDT Height 157.5 cm (5' 2 ) 01/07/2025 1:28 PM CDT Body Mass Index 28.9 01/07/2025 1:28 PM CDT Plan of Treatment Upcoming Encounters Date Type Department Care Team (Late st Contact Info) Description 06/05/2025 1:40 PM CDT Office Visit [facility] Family & Internal Medicine [address] [address] Ana Laura Cassidy MD [address] [place] [address]. [address] [place], [place] [id number] Health Maintenance Due Date Last Done Comments Colorectal Cancer Screening Colonoscopy (10 Years) 12/16/2024 12/16/2014 RSV Immunization or 60+ Years (1 - 1-dose 75+ series) 03/08/2025 Postponed from 2025 (Patient Refused) Dexa Scan (General) 07/07/2025 07/07/2023, 03/11/2021, 03/13/2018 COVID-19 Vaccine ( season) 2026 02/17/2022, 07/26/2021, 02/12/2021, Additional history exists Postponed from 06/03/2024 (Patient Refused) Annual Medicare Wellness Visit 01/08/2026 01/07/2025 DTaP, Tdap and Td Vaccines (3 - Td or Tdap) 05/17/2033 05/17/2023, 02/16/2013 Hepatitis C Completed 11/16/2018 Zoster Vaccines Completed 10/01/2019, 04/2019, 10/04/2012 PHQ-2 (Physician [place]) Completed 01/07/2025 Pneumococcal Vaccine: 50+ Years Completed 01/08/2025, 12/22/2015, 12/09/2014 Meningococcal B Vaccine Aged Out No l onger eligible based on patient's age to complete this topic Meningococcal Vaccine Aged Out No angela nicole eligible based on patient's age to complete this topic RSV Immunizations Under 20 Months Aged Out No longer eligible based on patient's age to complete this topic Procedures Procedure Name Priority Date/Time Associated Diagnosis Comments COLLECTION VENOUS BLOOD VENIPUNCTURE Routine 12/10/2024 9:09 AM CDT Mixed hyperlipidemia Osteopenia after menopause VITAMIN D, 25 OH Routine 12/10/2024 8:24 AM CDT Osteopenia after menopause LIPID PANEL Routine 12/10/2024 8:24 AM CDT Mixed hyperlipidemia COMPREHENSIVE METABOLIC PANEL Routine 12/10/2024 8:24 AM CDT Mixed hyperlipidemia CBC W/DIFF AUTOMATED Routine 12/10/2024 8:24 AM CDT Mixed hyperlipidemia BONE DENSITY GENERIC (SCAN ORDER) 07/07/2023 HEPATITIS C ANTIBODY 11/16/2018 3:08 PM CONFERENCE INTERPRETER COLONOSCOPY GENERIC (SCAN ORDER) 12/16/2014 from Last 3 Months or Most Recently Relevant to Health Maintenance Results * COMPREHENSIVE METABOLIC PANEL (12/10/2024 8:24 AM CDT) [facility] Signature GLUCOSE 95 65 - 99 mg/dL [facility] Comment: Fasting reference interval BUN 10 7 - 25 mg/dL [facility] CREATININE S/P/B 0.66 0.60 - 1.00 mg/dL [facility] GFR ESTIMATE 92 > OR = 60 mL/min/1. 73m2 [facility] BUN CREATININE RATIO SEE NOTE: 6 - 22 (calc) [facility] Comment: Not Reported: BUN and Creatinine are within reference range. SODIUM S/P/B 138 135 - 146 mmol/L [facility] POTASSIUM S/P/B 4.1 3.5 - 5.3 mmol/L [facility] CHLORIDE S/P/B 101 98 - 110 mmol/L [facility] CO2 25 20 - 32 mmol/L [facility] CALCIUM S/P/B 9.8 8.6 - 10.4 mg/dL [facility] Per [employer] TOTAL PROTEIN S/P/B 7.1 6.1 - 8.1 g/dL [facility] ALBUMIN S/P/B 4.7 3.6 - 5.1 g/dL [facility] GLOBULIN 2.4 1.9 - 3.7 g/dL (calc) [facility] ALBUMIN/GLOBULI N RATIO 2.0 1.0 - 2.5 (calc) [facility] BILIRUBIN TOTAL S/P/B 1.0 0.2 - 1.2 mg/dL [facility] ALKALINE PHOSPHATASE S/P/B 92 37 - 153 U/L [facility] AST 16 10 - 35 U/L [facility] ALT 14 6 - 29 U/L [facility] 12/10/2024 8:24 AM CDT 12/11/2024 5:15 AM CDT Narrative Resulting Agency Comment Performing Organization Information: Site ID: MS Name: Mamad[facility] Nicolas Address: [address] [place] [address] Director: Renetta Zabala MD us Ana Laura Cassidy MD LABORATORY Final Result MAMADOU GILES [facility] [address] [place] [address], * (ABNORMAL) LIPID PANEL (12/10/2024 8:24 AM CDT) CHOLESTEROL 213(H) <200 mg/dL [facility] HDL 45(L) > OR = 50 mg/dL [facility] TRIGLYCERIDES 88 <150 mg/dL [facility] LDL (CALCULATED) 149(H) mg/dL (calc) [facility] Comment: Reference range: <100 Desirable range <100 mg/dL for primary prevention; <70 mg/dL for patients with CHD or diabetic patients with > or = 2 CHD risk factors. LDL-C is now calculated using the Juarez calculation, which is a validated novel method providing better accuracy than the Friedewald equation in the estimation of LDL-C. Ryland SS et al. ALEX. 2013;310(60): 2245-8934 (http://education.Diarize/faq/PPO107) CHOL/HDL RATIO 4.7 <5.0 (calc) [facility] NON HDL CHOLESTEROL 168(H) <130 mg/dL (calc) [facility] Comment: For patients with diabetes plus 1 major ASCVD risk factor, treating to a non-HDL-C goal of <100 mg/dL (LDL-C of <70 mg/dL) is considered a therapeutic option. 12/10/2024 8:24 AM CDT 12/11/2024 5:15 AM CDT Narrative Resulting Agency Comment Performing Organization Information: Site ID: MS Name: [facility]ad[facility] Nicolas Address: [address] [place] [address] Director: Renetta Zabala MD us Ana Laura Cassidy MD LABORATORY Final Result [facility] T[facility] [address] [place] [address], * CBC W/DIFF AUTOMATED (12/10/2024 8:24 AM CDT) Pathologist [facility] WBC 4.5 3.8 - 10.8 Thousand/u L [facility] RBC 4.69 3.80 - 5.10 Million/uL [facility] HGB 14.2 11.7 - 15.5 g/dL [facility] HCT 42.6 35.0 - 45.0 % [facility] MCV 90.8 80.0 - 100.0 fL [facility] MCH 30.3 27.0 - 33.0 pg [facility] MCHC 33.3 32.0 - 36.0 g/dL [facility] Comment: For adults, a slight decrease in the calculated MCHC value (in the range of 30 to 32 g/dL) is most likely not clinically significant; however, it should be interpreted with caution in correlation with other red cell parameters and the patient's clinical condition. RDW 12.8 11.0 - 15.0 % [facility] PLT 184 140 - 400 Thousand/u L [facility] MPV 12.0 7.5 - 12.5 fL [facility] ABS. NEUTROPHILS 1,998 1,500 - 7,800 cells/uL [facility] ABS. LYMPHOCYTES 1,962 850 - 3,900 cells/uL [facility] ABS. MONOCYTES 468 200 - 950 cells/uL [facility] ABS. EOSINOPHILS 41 15 - 500 cells/uL [facility] ABS. BASOPHILS 32 0 - 200 cells/uL [facility] SEG NEUTROPHILS 44.4 % [facility]UES [employer] [facility] LYMPHOCYTES 43.6 % [facility] MONOCYTES 10.4 % [facility] EOSINOPHILS 0.9 % [facility] BASOPHILS 0.7 % [facility] 12/10/2024 8:24 AM CDT 12/11/2024 5:15 AM CDT Narrative Resulting Agency Comment Performing Organization Information: Site ID: MS Name: [facility] Address: [address] [place] [address] Director: Renetta Zabala MD us Ana Laura Cassidy MD LABORATORY Final Result [facility] ANITA GILES [facility] [id number] [place] [address] [place] [address], * VITAMIN D, 25 OH (12/10/2024 8:24 AM CDT) VITAMIN D 25 HYDROXY TOTAL S/P/B 51 30 - 100 ng/mL [facility] Comment: Vitamin D Status 25-OH Vitamin D: Deficiency: <20 ng/mL Insufficiency: 20 - 29 ng/mL Optimal: > or = 30 ng/mL For 25-OH Vitamin D testing on patients on D2-supplementation and patients for whom quantitation of D2 and D3 fractions is required, the QuestAssureD(TM) 25-OH VIT D, (D2,D3), LC/MS/MS is recommended: order code 85527 (patients >2yrs). See Note 1 Note 1 For additional information, please refer to http://education.Diarize/faq/CKY868 (This link is being provided for informational/ educational purposes only.) 12/10/2024 8:24 AM CDT 12/11/2024 5:15 AM CDT Narrative Resulting Agency Comment Performing Organization Information: Site ID: MS Name: [facility] Address: [facility] [place] [address] Director: Renetta Zabala MD Ana Laura Cassidy MD LABORATORY Final Result [facility] - SAM GIL[facility] [id number] [place], [place] [address] [address], * BONE DENSITY GENERIC (SCAN ORDER) (07/07/2023) Anatomical Region Laterality Modality Other 07/07/2023 us Doc Med Group Scanned SCANNING Final Resu lt * HEPATITIS C ANTIBODY (11/16/2018 3:08 PM CONFERENCE INTERPRETER) HEPATITIS C AB <0.1 0.0 - 0.9 s/co ratio [facility] 1 Comment: Negative: < 0.8 Indeterminate: 0.8 - 0.9 Positive: > 0.9 The CDC recommends that a positive HCV antibody result be followed up with a HCV Nucleic Acid Amplification test (322227). 11/16/2018 3:08 PM CONFERENCE INTERPRETER 11/16/2018 Narrative [facility] - 11/16/2018 3:08 PM CONFERENCE INTERPRETER Performed at: 01 - [facility] [address] [id number] Factory Worker: Mitchell Barnard PhD, Phone: [phone] [facility] Comment: A courtesy copy of this report has been sent to [facility] Comment: the patient. us Vasquez Mathew MD LABORATORY Edited R esult - Final [facility] [address] [place] [address] [facility] 1 * COLONOSCOPY GENERIC (12/16/2014) 12/16/2014 Narrative 12/16/2014 Ordered by an unspecified provider. us Documents Scanned SCANNING Final Result from Last 3 Months or Most Recently Relevant to Health Maintenance Insurance Care Teams Service Cashier Relationship Specialty Start [place] [address] [place] [address] PCP - General FAMILY PRACTICE 11/29/24
--- OUTSIDE RECORDS SUMMARY | 2025-02-14 00:43 | XMS_ITS | Patient Health Record ---
Author Organization [facility] Address [address] [place] [address] Support Name Relationship Address Phone Leana Grayson Guarantor Unknown [phone] Allergies No Known Allergies Reason For Referral No Information Problems Problem Type SNOMED Code ICD Code Onset Dates Problem Status W/U Status Risk Notes Problem Nevus, non-neoplastic (I78.1) Active confirmed Problem Pruritus (257516697) Pruritus, unspecified (L29.9) Active confirmed Plan Of Treatment No Information Insurance Providers Payer Name Payer Address Payer Phone Subscriber Number Group Number Insured Name Patient Relationship to Insured Coverage Start Date Coverage End Date [employer] [place] [address] [place] [address] [id number] Leana Grayson Self - patient is the insured 6 [employer] [place] [employer] [place] [address] [place] [id number] Plan G Leana Grayson Self - patient is the insured 6
--- OUTSIDE RECORDS SUMMARY | 2025-02-14 00:43 | XMS_ITS | Encounter Summary ---
Author Organization [facility] Address [address] 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
--- OUTSIDE RECORDS SUMMARY | 2025-02-14 00:43 | XMS_ITS | Encounter Summary ---
Author Organization [facility] Address [address] [place] [address] Care Team Providers Care Circulator Name Role Phone Christoph Delarosa MD Primary Care Provider [phone] Encounter Details Date Type Department Care Team (Late st Contact Info) Description 04/26/2001 Outpatient Historical [facility] Chavo Carlson MD [address] [place] [address] Gynecological examination (Primary Dx) Social History Tobacco Use Types Packs/Day Years Used Date Smoking Tobacco: Never Assessed Comments Unknown Sex and Gender Information Value Date Recorded Sex Assigned at Not on file Legal Sex Female 2:47 AM PLATFORM STAPLER Gender Identity Not on file Sexual Orientation Not on file documented as of this encounter Plan of Treatment Not on file documented as of this encounter Visit Diagnoses Diagnosis Gynecological examination- Primary documented in this encounter Care Teams Circulator Relationship Specialty Start Date End Date Christoph Delarosa MD PCP - General Internal Medicine 06/19/14 documented as of this encounter
--- OUTSIDE RECORDS SUMMARY | 2025-02-14 00:43 | XMS_ITS | Encounter Summary ---
Author Organization [facility] Address [address] 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
[2025-02-14 11:44] VITALS: BP 154/68; PULSE 51; RESP 16; TEMP 36.2; O2SAT 100; BMI 26.2
[2025-02-14] MEDS: LACTATED RINGERS 1,000 ML 150 ML IV CONT (12:02)
--- NOTE | 2025-02-14 12:15 | WPDANESEPPF ---
Anes - Initial Pre Proc Eval Procedure: Operation Date: 02/14/25 13:00 Proposed Procedures p Esophagogastroduodenoscopy&Screen Colon - Souleymane Felix MD Date/Time: 02/14/25 12:15 Surgeon: Souleymane Felix MD Pre Op Diagnosis: Esophageal obstruction Patient Data Age: 75 Gender: F Height: 1.6 m Weight: 67.1 kg Last Vital Signs Temp 36.2 C L 02/14/25 11:44 Pulse 51 L 02/14/25 11:44 Resp 16 02/14/25 11:44 BP 154/68 H 02/14/25 11:44 Pulse Ox 100 02/14/25 11:44 O2 Del Method Room Air 02/14/25 11:44 Allergies Allergy/AdvReac Type Severity Reaction Status Date / Time clindamycin Allergy Intermediate heart Verified 02/14/25 11:49 palpatations Home Medications Medication Instructions Recorded Confirmed Type ascorbate calcium (vitamin C) 500 500 mg PO DAILY 12/18/19 02/14/25 History mg tablet cyclosporine 0.05 % eye drops in a 1 drop ophthalmic (eye) .qd 12/18/19 02/14/25 History dropperette (Restasis) vitamin B complex 1 tablet PO DAILY 12/18/19 02/14/25 History cholecalciferol (vitamin D3) 25 25 mcg PO DAILY 03/04/21 02/14/25 History mcg (1,000 unit) capsule atenolol 25 mg tablet 25 mg PO DAILY #90 tabs 12/07/23 02/14/25 Rx losartan 50 mg tablet 50 mg PO DAILY #90 tabs 12/07/23 02/14/25 Rx Patient hx anesthesia problems: none Family hx anesthesia problems: none Results Review: All pre-operative results and documents have been reviewed as part of the pre-operative evaluation. [facility] Past Medical History Medical History Vertigo Hypertension Osteoarthritis of right knee Surgical History Surgical History History of tonsillectomy History of cholecystectomy (~1993) Family History Family History Mother Family history of lung cancer Patient's mother is Father Family history of heart disease in male family member before age 55 Patient's father is Family history of coronary artery disease Family history of congenital heart disease Social History Social History Smoking status: Never smoker Second hand tobacco smoke exposure: No Alcohol intake: current Substance use: never Substance use type: does not use Living arrangements: alone Anes - Eval Final PreProcedure Day of Procedure 02/14/25 12:15 Patient weight: overweight Heart: regular rate and rhythm Lungs: clear to auscultation Airway: Mallampati scale class II Neurological: alert and oriented Last oral intake: >/= 8 hours ASA classification: II Emergent: no Anesthetic plan: proceed Anesthesia type and monitoring: general GIVS and standard monitoring Results Review: All pre-operative results and documents have been reviewed as part of the pre-operative evaluation. Informed Consent: The patient's anesthetic plan and its attendant risks and benefits were discussed with the patient/family/POA. Questions were solicited and answers provided to the satisfaction of the patient/family/POA.
--- NOTE | 2025-02-14 12:25 | PM.HPGS ---
History of Present Illness History of Present Illness Consent: Risks, benefits, and alternatives have been discussed and questions answered. Patient agrees to proceed with procedure. Chief complaint: Esophageal obstruction Narrative: Leana Grayson is a 75 year old female with schatzki ring lately with dysphagia, last colonoscopy 10 years ago Review of Systems Review of Systems: All systems reviewed & are unremarkable except as noted in HPI and below PMFSH Past Medical History Medical History (Updated 02/14/25 @ 12:26 by Souleymane Felix MD) Colon cancer screening Dysphagia Vertigo Hypertension Osteoarthritis of right knee Surgical History Surgical History History of tonsillectomy History of cholecystectomy (~1993) Family History Family History Mother Family history of lung cancer Patient's mother is Father Family history of heart disease in male family member before age 55 Patient's father is Family history of coronary artery disease Family history of congenital heart disease Social History Social History Smoking status: Never smoker Second hand tobacco smoke exposure: No Alcohol intake: current Substance use: never Substance use type: does not use Living arrangements: alone Meds Home Medications and Allergies Home Medications Medication Instructions Recorded Confirmed Type ascorbate calcium (vitamin C) 500 500 mg PO DAILY 12/18/19 02/14/25 History mg tablet cyclosporine 0.05 % eye drops in a 1 drop ophthalmic (eye) .qd 12/18/19 02/14/25 History dropperette (Restasis) vitamin B complex 1 tablet PO DAILY 12/18/19 02/14/25 History cholecalciferol (vitamin D3) 25 25 mcg PO DAILY 03/04/21 02/14/25 History mcg (1,000 unit) capsule atenolol 25 mg tablet 25 mg PO DAILY #90 tabs 12/07/23 02/14/25 Rx losartan 50 mg tablet 50 mg PO DAILY #90 tabs 12/07/23 02/14/25 Rx Allergies Allergy/AdvReac Type Severity Reaction Status Date / Time clindamycin Allergy Intermediate heart Verified 02/14/25 11:49 palpatations Vital Signs Vital Signs - 24 hr 02/14/25 11:44 Temperature 97.1 F L Pulse Rate 51 L Respiratory Rate 16 Blood Pressure 154/68 H Pulse Oximetry 100 Oxygen Delivery Room Air Exam Const: General: comfortable and no acute distress HENMT: Face/Nose/Sinus: Normal nares present Eyes: General: appearance normal, both eyes and all related structures Neck: Neck: no JVD Resp: Auscultation: clear to auscultation bilaterally Cardio: Rate: regular rate Rhythm: regular rhythm GI: Inspection: non-distended GI Palp: Yes Soft to palpation Skin: General skin exam: normal color Neuro: General: gait normal Speech: normal speech Extrem: General: normal to inspection Psych: Mental Status: mental status grossly normal Assessment and Plan Assessment and plan (1) Dysphagia: Code(s): R13.10 - Dysphagia, unspecified Status: Acute Assessment and Plan: egd (2) Colon cancer screening: Code(s): Z12.11 - Encounter for screening for malignant neoplasm of colon Status: Acute Assessment and Plan: colonoscopy
--- NOTE | 2025-02-14 12:37 | SUR.OPER ---
EGD end time: 1232, Colonoscopy start time: 123
[2025-02-14 12:46] VITALS: BP 121/48; PULSE 49; RESP 18; O2SAT 98
[2025-02-14 12:56] VITALS: BP 113/58; PULSE 51; RESP 20; O2SAT 100
[2025-02-14 13:06] VITALS: BP 131/53; PULSE 59; RESP 18; O2SAT 100
== END 2025-02-14 13:27 | disposition home or self-care (01) ==
PROVIDERS: PCP Family Medicine; Referring Provider Family Medicine; Visit Provider Internal Medicine Gastroenterology
PROC: 0DJ08ZZ Inspection of Upper Intestinal Tract, Via Natural or Artificial Opening Endoscopic (ICD-10-PCS; CPT 45378; principal; 2025-02-14 13:00)
DX: Z12.11 Encounter for screening for malignant neoplasm of colon (principal); D12.0 Benign neoplasm of cecum; K57.30 Diverticulosis of large intestine without perforation or abscess without bleeding; K64.8 Other hemorrhoids; K22.2 Esophageal obstruction; K44.9 Diaphragmatic hernia without obstruction or gangrene; K29.70 Gastritis, unspecified, without bleeding
CPT/HCPCS: 45385; 43249; 43239; 88305; C1726; J2704; J7120

== ENCOUNTER 2025-07-29 11:29 | Outpatient (CLI) | payer MEDICARE, SELFPAY ==
--- NOTE | ~2025-07-29 | MM_ITS ---
EXAMINATION: MM screening [facility] BI w anai HISTORY: Screening TECHNIQUE: Craniocaudal and mediolateral oblique 3-D tomosynthesis images were obtained and synthetic 2-D images were generated. CAD analysis was submitted and interpreted. COMPARISON: Comparison to multiple prior studies sequentially, with oldest reviewed study dated 03/13/2018. BREAST PARENCHYMAL COMPOSITION: Not dense: There are scattered areas of fibroglandular density. FINDINGS: There is no evidence of suspicious mass, calcification, or architectural distortion to suggest malignancy in either breast. There has been no suspicious interval change. IMPRESSION: 1. No mammographic evidence of malignancy. 2. Recommend routine screening mammography in one year. BI-RADS Category 1: Negative Reviewed, dictated and finalized at location B.
== END 2025-07-29 11:30 | disposition home or self-care (01) ==
LOC: MICIMG 11:33
PROVIDERS: PCP Family Medicine; Visit Provider Obstetrics & Gynecology
DX: Z12.31 Encounter for screening mammogram for malignant neoplasm of breast (principal)
CPT/HCPCS: 77063; 77067

== ENCOUNTER 2025-08-08 13:45 | Outpatient (CLI) | payer MEDICARE, SELFPAY ==
--- OUTSIDE RECORDS SUMMARY | 2001-09-15 03:15 | XMS_ITS | Continuity of Care Document ---
Author Organization [facility] Address [id number] [place] [address] [place] [address] Phone Care Team Providers Care Cloth Cutting Machine Operator Name Role Phone Carlos Degroot DO Unavailable Unavailable Advance Directives Directive Yes / No Effective Date File Name No Information Encounters Encounter Description Practice Location Reason(s) For Visit Diagnoses Date Provider Providers Copied on Encounter [facility], [address] [place], [place], [id number], [place] tel:[phone] [facility] No Information Zane Barney. [address] [place], [address], [place]. tel: [phone] Family History Family Member Type Diagnosis Age At Onset No Information Payers Payer name Insurance type Covered republican ID Authoriza tion(s) No Information Social History Type Description Quantity Date Captured Comments Sex Female Smoking Status No Information Chief Complaint And Reason For Visit No Information Reason For Referral Reason For Referral No Information History Of Present Illness Encounter Date Complaint History Of Prese nt Illness No Information Functional Status Date Functional Assessmen t No Information Instructions Date Instruction Additional Infor mation No Information Assessments Type Assessment Date No Information Patient Care Teams Name Effective Dates (start - stop) Status Members No Information
--- NOTE | 2025-08-08 | ECHO_ITS ---
Patient Info Name: Leana Grayson Age: 75 years : 1950 Gender: Female Ht: 63 in Wt: 145 lbs BSA: 1.72 m2 HR: 73 bpm BP: 150 / 79 mmHg Technical Quality: Good Exam Date: 08/08/2025 2:14 PM Patient Status: O Admit Date: 08/08/2025 Exam Type: CA echo doppler color flow Complete two-dimensional, color flow and Doppler transthoracic echocardiogram is performed. Board Machine Set Up Operator: Ijeoma Freedman Attending Provider: Ana Laura Cassidy Summary 1. Complete two-dimensional, color flow and Doppler transthoracic echocardiogram is performed. 2. There is normal biventricular size and systolic function. 3. There are no significant valvular abnormalities. Left Ventricle The left ventricle is normal in size and systolic function. The left ventricular ejection fraction is visually estimated to be 65-70%. There are no regional wall motion abnormalities. Right Ventricle The right ventricle is normal in size and systolic function. Left Atria The left atrium is normal size. Right Atria The right atrium is normal size. 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 Aortic Valve The aortic valve is trileaflet and opens well. There is no aortic regurgitation. Pulmonic Valve The pulmonic valve is normal. There is no pulmonic valve regurgitation. Mitral Valve The mitral valve is normal. There is no mitral regurgitation. Tricuspid Valve The tricuspid valve is normal. There is trace tricuspid regurgitation. Pericardium/Pleural Pericardium is normal in appearance with no evidence for significant pericardial effusion. Inferior Vena Cava Normal inferior vena cava with >50% collapse upon inspiration consistent with normal right atrial pressure, 3 mmHg. Aorta The aortic root at the level of the sinus of Valsalva measures 2.7 cm in diameter. Left Ventricular Outflow Tract Name Value Normal LVOT 2D LVOT Diameter 1.9 cm LVOT Doppler LVOT Peak Velocity 149 cm/s LVOT Peak Gradient 9 mmHg LVOT Mean Gradient 4 mmHg LVOT VTI 30 cm LVOT VTI/AV VTI Ratio 0.9 LVOT Stroke Volume 85 ml LVOT CO 5.6 l/min LVOT CI 3.3 l/min/m2 Pulmonic Valve Name Value Normal RVOT Doppler RVOT Peak Velocity 114 cm/s RVOT Peak Gradient 5 mmHg PV Doppler PV Peak Velocity 133 cm/s PV Peak Gradient 7 mmHg Mitral Valve Name Value Normal MV Diastolic Function MV E Peak Velocity 80 cm/s MV A Peak Velocity 72 cm/s MV E/A 1.1 MV Decel Time (PW) 217 ms Tricuspid Valve Name Value Normal TV Regurgitation Doppler TR Peak Velocity 251 cm/s TR Peak Gradient 25 mmHg Estimated PAP/RSVP RA Pressure 3 mmHg <=5 PA Systolic Pressure 28 mmHg <36 RV Systolic Pressure 28 mmHg <36 Aorta Name Value Normal Ascending Aorta Ao Root Diameter (MM) 3.0 cm Ao Root Diam Index (MM) 1.7 cm/m2 Aortic Valve Name Value Normal AV Doppler AV Peak Velocity 170 cm/s AV Peak Gradient 12 mmHg AV Mean Gradient 6 mmHg AV VTI 34 cm AV Area (Cont Eq VTI) 2.5 cm2 >=3.0 AV Area (Cont Eq Cristofer) 2.5 cm2 AV DI (Cristofer) 0.88 AV Regurgitation 2D LVOT Area 2.9 cm2 Ventricles Name Value Normal LV Dimensions 2D/MM IVS Diastolic Thickness (2D) 0.9 cm 0.6-1.0 IVS Diastole Thickness (MM) 0.6 cm 0.6-0.9 LVID Diastole (2D) 4.1 cm 3.8-5.2 LVID Diastole (MM) 4.7 cm 3.8-5.2 LVIW Diastolic Thickness (2D) 0.6 cm 0.6-0.9 LVIW Diastolic Thickness (MM) 0.8 cm 0.6-0.9 LVID Systole (2D) 2.0 cm 2.2-3.5 LVID Systole (MM) 2.9 cm 2.2-3.5 LVOT Diameter 1.9 cm LV Mass (2D Cubed) 87.29 g 67.00-162.00 LV Mass Index (2D Cubed) 51 g/m2 43-95 Relative Wall Thickness (2D) 0.30 <=0.42 LV Mass (MM Cubed) 103.93 g 67.00-162.00 LV Mass Index (MM Cubed) 60 g/m2 43-95 Relative Wall Thickness (MM) 0.33 LV Fractional Shortening/Ejection Fraction 2D/MM LV Fractional Shortening (2D) 50 % 27-45 LV Fractional Shortening (MM) 38 % 27-45 LV EF (MM Teichholz) 68 % LV EF (2D Teichholz) 82 % LV Diastolic Volume (4C MOD) 62 ml LV EF (4C MOD) 67 % LV Diastolic Volume (2C MOD) 44 ml LV EF (2C MOD) 73 % LV Diastolic Volume (BP MOD) 53 ml 46-106 LV Diastolic Volume Index (BP MOD) 30 ml/m2 29-61 LV Systolic Volume (BP MOD) 16 ml 14-42 LV Systolic Volume Index (BP MOD) 9 ml/m2 8-24 LV EF (BP MOD) 70 % 54-74 LV Diastolic Length (4C) 7.2 cm LV Systolic Length (4C) 6.1 cm LV Stroke Volume (4C MOD) 42 ml Atria Name Value Normal LA Dimensions LA Dimension (MM) 3.6 cm 2.7-3.8 LA Volume (4C A-L) 46 ml LA Volume (BP A-L) 45 ml RA Dimensions RA Systolic Major [place] Length (4C) 5.1 cm 2.2-2.8 RA Area (4C) 13.8 cm2 <=18.0 Report Signatures
--- OUTSIDE RECORDS SUMMARY | 2025-08-08 20:15 | XMS_ITS | Encounter Summary ---
Author Organization [facility] Address [address] [place] [address] Care Team Providers Care Diesel Motor Mechanic Name Role Phone Christoph Delarosa MD Primary Care Provider [phone] Encounter Details Date Type Department Care Team (Late st Contact Info) Description 02/16/2007 Outpatient Historical [facility] 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
--- OUTSIDE RECORDS SUMMARY | 2025-08-08 20:15 | XMS_ITS | Clinical Summary ---
Author Organization [facility] Address [address] [place] [place] [address] Phone Care Team Providers Care Actuarial Technician Name Role Phone Christoph Delarosa MD Primary Care Provider [phone] Allergies Active Allergy Reactions Criticality Noted Date Comments Clindamycin Hives High 06/29/2018 Mold Other (See Comments) Low 05/22/2018 Medications Vit A,C,E-Zinc-Brando er (Vision Formula, L-F-M-Zn-brando,) [id number]-[id number] Capsule Take by mouth. 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 Gender Identity Not on file Sexual Orientation [...] 9:32 AM CDT Height 160 cm (5' 3) 06/27/2020 9:32 AM CDT Body Mass Index 27.99 06/27/2020 9:32 AM CDT Plan of Treatment Health Maintenance Due Date Last Done Comments COLORECTAL SCREENING 1995 Colorectal Cancer Screening 1995 FIT-DNA Q 3 years 1995 FIT/FOBT Q 1 year 1995 Flex Sig/CT Colonography Q 5 years 1995 PNEUMOCOCCAL VACCINE 50+ YEA RS (3 of 3 - PCV20 or PCV21) 12/21/2020 12/22/2015, 12/09/2014 DTAP/TDAP/TD VACCINES (2 - T d or Tdap) 02/16/2023 02/16/2013 OSTEOPOROSIS SCREENING 03/13/2023 8, 07/08/2014, 07/06/2012 RSV VACCINE (60+ or ) (1 - 1-dose 75+ series) 2025 INFLUENZA VACCINE (#1) 2025 9, 07/18/2018, 07/13/2017 ZOSTER VACCINE Completed 10/01/2019, 05/09/2019 Procedures Procedure Name Priority Date/Time Associated Diagnosis Comments XR DEXA BONE DENSITY AXIAL 1 OR MORE SITES Routine 03/13/2018 from Last 3 Months or Most Recently Relevant to Health Maintenance Results * XR DEXA BONE DENSITY AXIAL 1 OR MORE SITES (03/13/2018) Anatomical Region Laterality Modality Other us Robert Rebolledo MD DIAGNOSTIC IMAGING ORDERABLE S Edited Result - Final from Last 3 Months or Most Recently Relevant to Health Maintenance Insurance Care Teams Actuarial Technician Relationship Specialty Start Date End Date Christoph Delarosa MD PCP - General Internal Medicine 06/19/14
--- OUTSIDE RECORDS SUMMARY | 2025-08-08 20:15 | XMS_ITS | Encounter Summary ---
Author Organization [facility] Address [address] 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
--- OUTSIDE RECORDS SUMMARY | 2025-08-08 20:15 | XMS_ITS | Data Portability ---
Author Organization [facility], [id number] Address [address] [place] [address] Assessment No assessment recorded. Plan of Treatment Reminders Order Date Submit Date Provider Last Modified By Organization Details Last Modified Time Details Appointments ANNUAL- EST 15 2025 12:00P M YANCY ROTH MD Not available Not available Not available Lab None recorded. Referral None recorded. Procedures None recorded. Surgeries None recorded. Imaging MAMMO, screening , bilateral 2024 025 [facility] (Imaging), [address] [place] [address] [address], [place], [address], 07/29/2025 15:31:07 DEXA - last one done 07-07-23, osteopangela a. please do after 07-07-252024 025 [facility] (Imaging), [address] [place] [address] [place] [address], [address], 04/10/2025 12:42:11 Medication Orders None recorded. Patient TargetsNo targets recorded. Patient InstructionsNo instructions recorded. Reason for Referral None Reported. Results Created Date Observation Date Name Description Value Unit Range Abnormal Flag Note LastModifiedBy Organization Detail LastModifiedTime 07/29/2007/29/2025 MAMMO , scree dilip, bilat eral No observ ation record ed. [email or web address] [address], [place], [address], 08/08/2025 13:46:47 Result Notes None recorded. Problems Name Problem SNOMED Code Status Onset Date Resolution Date Notes Provider Name and Address Organization Details Recorded Time Disorder of bone and articular cartilage 018789934 Active Osteopen ia, Problem Code: 733.90; Problem Code Type: ICD-9; Not Available [facility] 12:04:16 Condyloma acuminatum of the anogenital region 242903612 Active Vaginal Warts, Problem Code: 078.11; Problem Code Type: ICD-9; Not Available [facility] 12:04:16 Essential hypertensio n 48104048 Active Hyperten pedro, Problem Code Descript ion: 'Hyperte nsion'; Not Available [facility] 12:04:17 Problem Notes None recorded. Procedures Surgical History Date Name Laterality Status Provider Name and Address Organization Details Recorded Time 07/29/20 Date of Last Mammogram completed YANCY ROTH MD [address], [address] 07/29/2025 13:51:33 02/15/20 Date of Last Colonoscopy completed [facility] for [facility] 03/27/2025 12:03:40 05/27/20 hysterectomy completed Not Available [facility] 01/31/2025 13:38:16 Laparoscopic cholecystectomy completed Not Available [facility] 01/31/2025 13:38:15 cataract surgery completed Not Available [facility] 01/31/2025 13:38:15 laparoscopic sterilization completed Not Available [facility] 01/31/2025 13:38:15 tonsillectomy completed Not Available [facility] 01/31/2025 13:38:16 Imaging Results None recorded. Procedure Notes None recorded. Medical Equipment None Reported. Allergies No known drug allergies Medications Name Sig Start Date Stop Date Status Note LastModified by Organization Details LastModified Time losartan 50 mg tablet TAKE 1 TABLET BY MOUTH ONCE DAILY active Not Available Not Available No t Available simvastatin 10 mg tablet TAKE 1 TABLET BY MOUTH ONCE DAILY 03/27 completed Not Available Not Available Not Available atenolol 25 mg tablet TAKE 1 TABLET BY MOUTH ONCE DAILY active Not Available Not Available No t Available pantoprazole 40 mg tablet,delay ed release TAKE 1 TABLET BY MOUTH TWICE DAILY 03/27 completed Not Available Not Available Not Available Restasis 0.05 % eye drops in a dropperette INSTILL 1 DROP INTO EACH EYE TWICE DAILY active Not Available Not Available No t Available Vitals Date Recorded Body height Body mass index (BMI) Body weight Systolic And Diastolic Provider Name and Address Organization Details Last Updated DateTime 03/27/2025 160.02 cm 26.2 kg/m2 57677.67 g 122/64 mm[Hg] Javon Graves [facility] 03/27/2025 12:02:27 Social History Question Answer Notes LastModified by [employer] Details LastModified Time Tobacco Smoking Status Never Smoker Not Available [facility] 01/31/2025 13:41:27 What Is Your Relationship Status? Other Note: Information not available 01/31/2025 Sex: Unknown Functional Status Question Answer Note LastModified by [employer] Details LastModified Time Do you use any illicit or recreational drugs? No Information not available 01/31/2025 What is your level of alcohol consumption? Occasional Qty: 0-2 per day; Note: Use status used: Current some day Amount used: rare Information not available 01/31/2025 What is your occupation? Note: retired Information not available 01/31/2025 Mental Status None recorded. Family History Relationship Description Onset Age of this Age Resolved Age Notes LastModified by Organization Details LastModified Time Father Hypertensive disorder High Blood Pressu re Not available 01/31/2025 13:52:15 Father Heart disease Heart Diseas e Not available 01/31/2025 13:52:15 Medical History Condition Response ID-Other Y Cancer- Genetic screening Endocrinology- Osteopenia Y Cardiology- High Blood Pressure Y Gynecological History Statement/Question Response If Post Menopausal, Age at Menopause 1 Date of Last Mammogram 07/29/2025 Date of Last Colonoscopy 02/14/2025 Duration of Flow (days) 0 Age at Menarche 13 Current Control Method History of Sexually Transmitted Infectio n Y Date of Last Bone Density 2018 Obstetrics History GPAL:G 2 P 2 0 0 2 Type Value Multiple Births 0 Full Term 2 Induced 0 Spontaneous 0 Premature 0 Living 2 Ectopics 0 Total 2 Immunizations Vaccine Type Date Status Note Provider Nam e and Address Organization Details Recorded Time zoster recombinant 9 completed Javon Wilcoxs null, [place] - [facility] 03/27/2025 12:02:34 zoster recombinant 9 completed [place] [facility] 03/27/2025 12:02:34 Influenza, high-dose, quadrivalent, PF 2 completed [place] [facility] 03/27/2025 12:02:34 Influenza, high-dose, quadrivalent, PF 3 completed aJvon [place] [facility] 03/27/2025 12:02:34 Influenza, high-dose, quadrivalent, PF 0 completed [place]on [place] [facility] 03/27/2025 12:02:34 COVID-19, mRNA, LNP-S, PF, 100 mcg/0.5mL dose or 50 mcg/0.25mL dose 1 completed J[place]on [place] [facility] 03/27/2025 12:02:34 COVID-19, mRNA, LNP-S, PF, 100 mcg/0.5mL dose or 50 mcg/0.25mL dose 1 completed J[place]on [place] [facility] 03/27/2025 12:02:34 COVID-19, mRNA, LNP-S, PF, 100 mcg/0.5mL dose or 50 mcg/0.25mL dose 2 completed [place]on [place] [facility] 03/27/2025 12:02:34 COVID-19, mRNA, LNP-S, PF, 100 mcg/0.5mL dose or 50 mcg/0.25mL dose 1 completed Javon [place] [facility] 03/27/2025 12:02:34 pneumococcal polysaccharide PPV23 5 completed Javon Mcnamaraebbels [place] [facility] 03/27/2025 12:02:34 Pneumococcal conjugate PCV21, polysaccharide [id number] conjugate, PF 5 completed Javon Mcnamaraebbels [place] [facility] 03/27/2025 12:02:34 influenza, unspecified formulation 4 completed Javon Lobatobels [place] [facility] 03/27/2025 12:02:34 Tdap 3 completed [place] [facility] 03/27/2025 12:02:34 Tdap 3 completed Javon Mcnamaraebsanas [place] [facility] 03/27/2025 12:02:34 Pneumococcal conjugate PCV 13 6 completed [place]on [place] [facility] 03/27/2025 12:02:34 zoster live 3 completed [place] [facility] 03/27/2025 12:02:34 Influenza, high-dose, trivalent, PF 7 completed Javon Lobatobels [place] [facility] 03/27/2025 12:02:34 Influenza, high-dose, trivalent, PF 8 completed Javon Lobatobels [place] [facility] 03/27/2025 12:02:34 Influenza, high-dose, trivalent, PF 9 completed Javon Mcnamaraebbels [place] [facility] 03/27/2025 12:02:34 Influenza, split virus, trivalent, preservative 7 completed Javon Mc[place]araebbels [place] [facility] 03/27/2025 12:02:34 influenza, split (incl. purified surface antigen) 3 completed Javon Mcnamaraebbels [place] [facility] 03/27/2025 12:02:34 Past Encounters Encounter ID Performer Location Encounter Start Date Encounter Closed Date Diagnosis/Indication Diagnosis SNOMED-CT Code Diagnosis ICD10 Code Diagnosis IMO Codes Diagnosis Note [id number] YANCY ROTH MD [id number] [place] [address] 03/27/2025 11:27:27 03/27/2025 12:27:52 Screening mammography 09700010 Z12.31 75559261 Disorder o f bone and articular cartilage 369889727 M24.10 Z78.0 Health Concerns Section Related Observation LastModified by Organization Detai ls LastModified Time None Recorded Concern Status LastModified by Organization Details LastModified Time None Recorded Advance Directives Directive None Recorded Payers Insurance Date Sequence Insurance Name Policy Number Policy Nguyen Covered Member ID Nguyen Member ID Guarantor Name 04/16/2025 1 [facility]) [id number] Leana Grayson [id number] Leana Grayson Notes Date Note Type Note Provider Name and Address Organization Details Recorded Time 5 text/html Annual WASHTUB WORKER - McwhcReported by PatientGenitourinary symptomsFor urinary symptoms, patient reportsno hematuriaandno incontinence. For vulvar complaints, patient reportsnone. For vaginal complaints, patient reportsnone. For gastrointestinal symptoms, patient reportsno gastrointestinal symptoms.Breast symptomsFor breast, patient reportsno breast pain,no breast lump, andno nipple discharge.Endocrine symptomsFor sexual complaints, patient reportsno sexual complaints. For menopausal symptoms, patient reportsno menopausal symptomsandnormal vaginal lubrication.Psychological symptomsFor psychological symptoms, patient reportsno depression,no anxiety, andno pmdd. YANCY ROTH MD [address], [place], [address], [facility] 03/27/2025 12:25:41 OBGyn Episode Ob Episode Information Episode Created Date Number of Fetuses Patient Bloodtype Patient rh Status Prepregnancy Weight lbs Domestic Partner Domestic Partner Phone Father Name Plug Cutting Machine Operator Status 02/15/20 25 1 CLOSED Fetus Data First Name Last Name Admitted to NICU Weight (g) Sex Living Outcome Pediatric Complications Fetus ID Race Codes Race Delivery Type M [id number] Vaginal Ender Calculation Initial Ender Date Initial Exam Date Initial Exam Provider Initial Ultrasound Date Last Menstrual Period Date Ultra Sound Weeks Gestation 0 Eighteen To Twenty Week Ender Update Ultra Sound Date Fundal Height At Umbil Quickening Date Ultra Sound Latest Weeks Gestation Final Ender Confirmed By Final Ender Confirmed Date Final Ender Date Ultra Sound Latest Days Gestation 0 0 Menstrual History Last Menstrual Date Menses Monthly On Bcp Conception Prior Menses Frequency Hcg Plus Date Menarche Onset Age Delivery Information Delivery Date Delivery Type Labor Anesthesia Weeks Gestation Incision Type Labor Labor Length Hrs Delivered By Post Complications Tubal Sterilization Discharge Date Comments 5 [facility], fetus_1_w eight_lbs : '9lbs 6oz'; Discharge Information Feeding Method Contraceptive Method Maternal HG B and HCT Levels Ob Episode Information Episode Created Date Number of Fetuses Patient Bloodtype Patient rh Status Prepregnancy Weight lbs Domestic Partner Domestic Partner Phone Father Name Plug Cutting Machine Operator Status 02/15/20 25 1 CLOSED Fetus Data First Name Last Name Admitted to NICU Weight (g) Sex Living Outcome Pediatric Complications Fetus ID Race Codes Race Delivery Type M [id number] Vaginal Ender Calculation Initial Ender Date Initial Exam Date Initial Exam Provider Initial Ultrasound Date Last Menstrual Period Date Ultra Sound Weeks Gestation 0 Eighteen To Twenty Week Ender Update Ultra Sound Date Fundal Height At Umbil Quickening Date Ultra Sound Latest Weeks Gestation Final Ender Confirmed By Final Ender Confirmed Date Final Ender Date Ultra Sound Latest Days Gestation 0 0 Menstrual History Last Menstrual Date Menses Monthly On Bcp Conception Prior Menses Frequency Hcg Plus Date Menarche Onset Age Delivery Information Delivery Date Delivery Type Labor Anesthesia Weeks Gestation Incision Type Labor Labor Length Hrs Delivered By Post Complications Tubal Sterilization Discharge Date Comments [facility] : '8lbs 14oz'; Discharge Information Feeding Method Contraceptive Method Maternal HG B and HCT Levels
--- OUTSIDE RECORDS SUMMARY | 2025-08-08 20:15 | XMS_ITS | Encounter Summary ---
Author Organization [facility] Address [address] 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
--- OUTSIDE RECORDS SUMMARY | 2025-08-08 20:15 | XMS_ITS | Patient Health Record ---
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) Active confirmed Problem Pruritus (341492550) Pruritus, unspecified (L29.9) Active confirmed Plan Of Treatment No Information Insurance Providers Payer Name Payer Address Payer Phone Subscriber Number Group Number Insured Name Patient Relationship to Insured Coverage Start Date [facility]age End Date [facility] [address] [place] [address] [id number] Leana Grayson Self - patient is the insured 6 [facility] [place] [facility] [place] [address] [id number] Plan G Leana Grayson Self - patient is the insured 6
--- OUTSIDE RECORDS SUMMARY | 2025-08-08 20:15 | XMS_ITS | Encounter Summary ---
Author Organization [facility] Address 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 Gender Identity Not on file Sexual Orientation [...] AM CDT Narrative 05/04/2008 2:25 PM CDT [address] [address] Admit Date: 05/03/2008 HARRISON MARCUM Sex: F Admit Prov: CHAVO TONEY Date: 1950 Primary Care Prov: OMERO BARRAGAN CMRN: [id number] Room: SMITHA N: [id number] IMAGING SERVICES Ordering Prov: CHAVO TONEY Accession Number: [id number] Interpretation BILATERAL FULL FIELD DIGITAL SCREENING MAMMOGRAM [...] AMK Procedure Note Sri Botello - 05/04/[address] [address] Admit Date: 05/03/2008 HARRISON MARCUM Sex: F Admit Prov: CHAVO TONEY Date: 1950 Primary Care Prov: OMERO BARRAGAN CMRN: [id number] Room: SMITHA N: [id number] IMAGING SERVICES Ordering Prov: CHAVO TONEY Interpretation [...] mammogram documented in this encounter Care Teams Fuse Maker Relationship Specialty Start Date End Date Chritsoph Delarosa MD PCP - General Internal Medicine 06/19/14 documented as of this encounter
--- OUTSIDE RECORDS SUMMARY | 2025-08-08 20:15 | XMS_ITS | Encounter Summary ---
Author Organization [facility] Address [address] 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
--- OUTSIDE RECORDS SUMMARY | 2025-08-08 20:15 | XMS_ITS | Encounter Summary ---
Author Organization [facility] Address 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
--- OUTSIDE RECORDS SUMMARY | 2025-08-08 20:15 | XMS_ITS | Encounter Summary ---
Author Organization [facility] Address [address] [place] [address] Care Team Providers Care Field Advisor Name Role Phone Christoph Delarosa MD Primary Care Provider [phone] Encounter Details Date Type Department Care Team (Late st Contact Info) Description 05/19/2005 Outpatient Historical HIS [facility] Chavo Carlson MD [address] [place] [phone] SCREENING MAMM-MAILG NEOPL-OTHER (Primary Dx) Social History Tobacco Use Types Packs/Day Years Used Date Smoking Tobacco: Never Assessed Comments Unknown Sex and Gender Information Value Date Recorded Sex Assigned at Not on file 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
--- OUTSIDE RECORDS SUMMARY | 2025-08-08 20:15 | XMS_ITS | Clinical Summary ---
Author Organization [facility] Address [address] [place] [address] Care Team Providers Care Family Preservation Officer Name Role Phone Ryan Cassidy MD Primary Care Provider [phone] Allergies Active Allergy Reactions Criticality Noted Date [...] 1 tablet by mouth daily. 8 Active Ol[place]-3 Fatty Acids (FISH OIL PEARLS) 150 MG Cap 8 Active RESTASIS 0.05 % ophthalmic emulsion INSTILL 1 DROP INTO EACH EYE TWICE DAILY DIRECTED 3 9 Active Cholecalciferol (VITAMIN D3) 25 MCG (1000 UT) Cap Active carboxymethylcel lulose PF (THERATEARS PF) 0.25 % ophthalmic solution Apply 1 drop to eye. Active losartan (COZAAR) 50 MG tabletIndication s:White coat syndrome with diagnosis of hypertension Take 2 tablets (100 mg total) by mouth daily. 180 tablet 3 5 Active atenolol (TENORMIN) 25 MG tabletIndication s:Essential hypertension Take 0.5 tablets (12.5 mg total) by mouth daily. 45 tablet 3 5 07/16/20 25 Discontinu ed(Side effects) losartan (COZAAR) 50 MG tabletIndication s:Essential hypertension Take 1.5 tablets (75 mg total) by mouth daily. 135 tablet 3 5 07/16/20 25 Discontinu ed(Reorder ) losartan (COZAAR) 50 MG tabletIndication s:White coat syndrome with diagnosis of hypertension Take 2 tablets (100 mg total) by mouth daily. 180 tablet 3 5 07/22/20 25 Discontinu ed(Reorder ) Active Problems Problem Noted Date Diagnosed Date Condyloma acuminatum 07/16/2025 Overview (07/16/2025): Vaginal Warts, Problem Code: 078.11; Problem Code Type: ICD-9; Disorder of bone and articular cartilage 025 Overview (07/16/2025): Osteopenia, Problem Code: 733.90; Problem Code Type: ICD-9; Exposure to COVID-19 virus 07/16/2025 Osteoarthritis of right knee 07/16/2025 Other fatigue 07/16/2025 Venous insufficiency 07/16/2025 UTI (urinary tract infection) 07/16/2025 Sinus bradycardia 07/16/2025 Asymptomatic varicose veins of both lower extrem ities 07/16/2025 Sensorineural hearing loss (SNHL) of both ears 0 05/22/2024 Tinnitus of both ears 05/22/2024 Vertigo 03/08/2024 Osteopenia after menopause 03/08/2024 Schatzki's ring 03/08/2024 Diverticulosis of colon 03/08/2024 Solar lentigo 03/08/2024 GERD without esophagitis 05/21/2020 Erosive osteoarthritis of right hand 06/07/2018 Mixed hyperlipidemia 05/22/2018 White coat syndrome with diagnosis of hypertensi on 05/22/2018 Joint pain in fingers of right hand 05/22/2018 Resolved Problems Problem Noted Date Diagnosed Date Resolved Date Bicipital tendinitis 07/05/2018 024 Shoulder pain, right 07/05/2018 024 DRUJ (distal radioulnar joint) sprain 06/07/2018 03/08/2024 ECU (extensor carpi ulnaris) , subluxation/dislocation 06/07/2018 03/08/2024 Rectal itching 05/29/2018 03/08/2024 Abnormal vaginal bleeding 05/22/2018 Dysuria 05/22/2018 03/08/2024 Neuropathy of hand 05/22/2018 Wears glasses 05/22/2018 06/13/2020 Encounter for preventive health examination 05/19/2018 06/13/2020 Encounters Date Type Department Care Team Description 07/29/2025 Scan HEALTH INFO SRVCS Scanned, Doc [facility] Mammogram (SCAN) 07/22/2025 Telephone [facility] Orthopedic & Sports Medicine [address] [address] Jamarcus George MD Question 07/22/2025 Telephone [facility] Family & Internal Medicine [address] [address] Ryan Cassidy MD Orders 07/22/2025 Telephone [facility] Family & Internal [facility] [address] [place] [address] Ryan Cassidy MD Information 07/17/2025 Telephone [facility] Family & Internal [address] [address] Ryan Cassidy MD Information (cardiology reports/results) 07/17/2025 Results Follow-Up [facility] Family & Internal [address] [address] Ryan Cassidy MD URIC ACID BLOOD, BASIC METABOLIC PANEL, XR THIRD FINGER LT 3V 07/16/2025 12:30 PM CDT - 07/16/2025 11:59 PM CDT Hospital Encounter [facility] [address] [place] [address] Ryan Cassidy MD Discharge Disposition: Home or Self Care (Routine Discharge) 07/16/2025 12:10 PM CDT Laboratory Only [facility] Internal [address] [phone] Ryan Cassidy MD 07/16/2025 11:40 AM CDT Office Visit [facility] Internal [address] [phone] Ryan Cassidy MD Follow Up (Bp follow up ) 07/16/2025 Scan [facility] HEALTH INFO SRVCS Scanned, Doc Med [facility] 07/16/2025 Travel 07/12/2025 Telephone [facility] Internal [address] [phone] Ryan Cassidy MD Referral 07/01/2025 Telephone [facility] Internal [address] [phone] Ryan Cassidy MD Appointment Request 06/05/2025 1:40 PM CDT Office Visit [facility] Internal [address] [address] Ryan Cassidy MD Hypertension 06/05/2025 Travel from Last 3 Months Immunizations Immunization Administration Dates Next Due Fluzone High Dose - >Age 65 (Prefilled Syringe) 06/21/2023,05/21/2022,06/16/2021,2019,08/09/2019,07/18/2018,07/13/2017 Influenza (Generic) 08/13/2013 Influenza Adult (Generic) 07/18/2014 Pneumococcal (Capvaxive - PCV 21) 01/08/2025 Pneumococcal (Pneumovax 23) 08/07/2015, 9 Pneumococcal (Prevnar 13) 12/22/2015 Pneumovax 23 25 Mcg/0.5Ml Ij Inj 12/09/2014 Shingrix 10/01/2019,05/09/2019 Tdap (Adacel) 02/16/2013 Tdap (Generic) 05/17/2023 Zoster (Zostavax) [address] Unt/0.65Ml 10/04/2012 Family History Medical History Relation [...] Sex Assigned at Female 12/03/2024 1:23 PM SIZING SPRAYER Legal Sex Female 10:54 PM CDT Gender Identity Female 01/07/2025 1:23 PM CDT Sexual Orientation Not on file Last Filed Vital Signs Vital Sign Reading Time Taken Comments Blood Pressure 126/66 07/16/2025 12:06 PM CDT ho me reading Pulse 54 07/16/2025 11:37 AM CDT Temperature 36.5 C (97.7 F) 07/16/2025 11:37 AM CDT Respiratory Rate 18 07/16/2025 11:37 AM CDT Oxygen Saturation 97% 07/16/2025 11:37 AM CDT Inhaled Oxygen Concentration - - Weight 67.6 kg (149 lb) 07/16/2025 11:37 AM CDT Height 157.5 cm (5' 2) 07/16/2025 11:37 AM CDT Body Mass Index 27.25 07/16/2025 11:37 AM CDT Plan of Treatment Upcoming Encounters Date Type Department Care Team (Late st Contact Info) Description 08/26/2025 1:00 PM SIZING SPRAYER Office Visit [facility] Orthopedic & Sports Medicine - [place] [place] [address] Jamarcus George MD [address] [place] [address] 12/09/2025 1:40 PM CDT Office Visit [facility] Family & Internal Medicine [facility] [address] [place] [address] [place] [id number] [place] [address]. [address] [place] [address] Health Maintenance Due Date Last Done Comments RSV Immunization or 60+ Years (1 - 1-dose 75+ series) 2025 COVID-19 Vaccine ( season) 2025 02/17/2022, 07/26/2021, 02/12/2021, Additional history exists Influenza Adult (#1) 2025 06/21/2023, 05/21/2022, 06/16/2021, Additional history exists Dexa Scan (General) 07/07/2025 07/07/2023, 03/11/2021, 03/13/2018 Annual Medicare Wellness Visit 01/08/2026 01/07/2025 Colorectal Cancer Screening Colonoscopy (10 Years) 02/14/2030 02/14/2025, 12/16/2014 DTaP, Tdap and Td Vaccines (3 - Td or Tdap) 05/17/2033 05/17/2023, 02/16/2013 Hepatitis C Completed 11/16/2018 Zoster Vaccines Completed 10/01/2019, 04/2019, 10/04/2012 PHQ-2 (Physician [place]) Completed 01/07/2025 Pneumococcal Vaccine: 50+ Years Completed 01/08/2025, 12/22/2015, 08/07/2015, Additional history exists Hepatitis A Vaccines Aged Out No long er eligible based on patient's age to complete this topic Meningococcal B Vaccine Aged Out No l onger eligible based on patient's age to complete this topic Meningococcal Vaccine Aged Out No angela nicole eligible based on patient's age to complete this topic RSV Immunizations Under 20 Months Aged Out No longer eligible based on patient's age to complete this topic Procedures Procedure Name Priority Date/Time Associated Diagnosis Comments MAMMOGRAM GENERIC (SCAN ORDER) 07/29/2025 XR THIRD FINGER LT 3V Routine 07/16/2025 12:43 PM CDT Arthritis of left hand COLLECTION VENOUS BLOOD VENIPUNCTURE Routine 07/16/2025 12:11 PM CDT Arthritis of left hand BASIC METABOLIC PANEL Routine 07/16/2025 12:11 PM CDT Arthritis of left hand URIC ACID BLOOD Routine 07/16/2025 12:11 PM CDT Arthritis of left hand COLONOSCOPY GENERIC (SCAN ORDER) 02/14/2025 BONE DENSITY GENERIC (SCAN ORDER) 07/07/2023 HEPATITIS C ANTIBODY 11/16/2018 3:08 PM SIZING SPRAYER from Last 3 Months or Most Recently Relevant to Health Maintenance Results * MAMMOGRAM GENERIC (SCAN ORDER) (07/29/2025) Anatomical Region Laterality Modality Other 07/29/2025 us Doc [facility] Scanned SCANNING Final Resu lt * XR THIRD FINGER LT 3V (07/16/2025 12:43 PM CDT) Anatomical Region Laterality Modality Hand Radiographic Radha ging 07/17/2025 8:14 AM CDT Impressions 07/17/2025 8:15 AM CDT IMPRESSION: Erosive arthropathy involving the third digit, greatest at the DIP joint. Ordered By: RYAN CASSIDY Interpreted By: Art Bradshaw MD, 07/17/2025 8:14 AM Narrative 07/17/2025 8:[address] [facility] [address] [place] [address] Procedure(s): XR THIRD FINGER LT 3V Date of service: 07/16/2025 12:43 PM Provided clinical information: 75 years, Female, ongoing pain and swelling Procedure and materials: 3 views left third digit. Comparison studies: None. Findings: Joint space narrowing and erosive changes along with osteophytes are present about the DIP joints of the second and third digits. This is due to an erosive arthropathy. Soft tissue swelling about the second and third digit is present. No fracture, dislocation or acute bony abnormality. Procedure Note Art Bradshaw MD - 07/17/2025 [facility] [address] [place] [address] Procedure(s): XR THIRD FINGER LT 3V Date of service: 07/16/2025 12:43 PM Provided clinical information: 75 years, Female, ongoing pain andswelling Procedure and materials: 3 views left third digit. Comparison studies: None. Findings: Joint space narrowing and erosive changes along with osteophytes arepresent about the DIP joints of the second and third digits. This is dueto an erosive arthropathy. Soft tissue swelling about the second and third digit is present. No fracture, dislocation or acute bony abnormality. IMPRESSION: Erosive arthropathy involving the third digit, greatest at the DIPjoint. Ordered By: RYAN CASSIDY Interpreted By: Art Bradshaw MD, 07/17/2025 8:14 AM Ryan Cassidy MD GENERAL IMAGING Final Result * (ABNORMAL) BASIC METABOLIC PANEL (07/16/2025 12:11 PM CDT) GLUCOSE 90 65 - 99 mg/dL [facility] [place] Comment: Fasting reference interval BUN 15 7 - 25 mg/dL [place] CREATININE S/P/B 0.57(L) 0.60 - 1.00 mg/dL [place] GFR ESTIMATE 95 > OR = 60 mL/min/1.7 3m2 [place] BUN CREATININE RATIO 26(H) 6 - 22 (calc) [place] SODIUM S/P/B 138 135 - 146 mmol/L [place] POTASSIUM S/P/B 4.3 3.5 - 5.3 mmol/L [facility] [place] CHLORIDE S/P/B 104 98 - 110 mmol/L [place] CO2 26 20 - 32 mmol/L [place] CALCIUM S/P/B 9.1 8.6 - 10.4 mg/dL [place] 07/16/2025 12:1 1 PM CDT 07/17/2025 4:42 AM CDT Narrative Resulting Agency Comment Performing Organization Information: Site ID: Name: [facility] Address: [address] [place] [address] [place] [address] Director: Renetta Zabala Ryan Cassidy MD LABORATORY Final Result Performing Organization Address City/[facility]/ZIP Co de Phone Number [employer] [facility] [place] [employer] [address], * URIC ACID BLOOD (07/16/2025 12:11 PM CDT) URIC ACID 3.3 2.5 - 7.0 mg/dL [facility] [place] Comment: Therapeutic target for gout patients: <6.0 mg/dL 07/16/2025 12:1 1 PM CDT 07/17/2025 4:42 AM CDT Narrative Resulting Agency Comment Performing Organization Information: Site ID: Name: [facility] Address: [address] [place] [address] [place] [address] Director: Renetta Zabala us Ryan Cassidy MD LABORATORY Final Result Performing Organization Address [facility]/ZIP Co de Phone Number [employer] [facility] [place] [employer] [address], * COLONOSCOPY GENERIC (SCAN ORDER) (02/14/2025) 02/14/2025 us [facility] Scanned SCANNING Final Resu lt * BONE DENSITY GENERIC (SCAN ORDER) (07/07/2023) Anatomical Region Laterality Modality Other 07/07/2023 us [facility] Scanned SCANNING Final Resu lt * HEPATITIS C ANTIBODY (11/16/2018 3:08 PM SIZING SPRAYER) HEPATITIS C AB <0.1 0.0 - 0.9 s/co ratio [facility] 1 Comment: Negative: < 0.8 Indeterminate: 0.8 - 0.9 Positive: > 0.9 The CDC recommends that a positive HCV antibody result be followed up with a HCV Nucleic Acid Amplification test (774972). 11/16/2018 3:08 PM SIZING SPRAYER 11/16/2018 Narrative [facility] - 11/16/2018 3:08 PM SIZING SPRAYER Performed at: 01 - [facility] [address] [id number] Mobile Development Manager: Mitchell Barnard PhD, Phone: [phone] Specimen Comment: A courtesy copy of this report has been sent to Specimen Comment: the patient. Vasquez Mathew MD LABORATORY Edited R esult - Final [facility] [address] [place] [address] [facility] 1 from Last 3 Months or Most Recently Relevant to Health Maintenance Insurance MEDICARE Care Teams Family Preservation Officer Relationship Specialty [place] [address] [address] [place] [address] PCP - General FAMILY PRACTICE 11/29/24
--- OUTSIDE RECORDS SUMMARY | 2025-08-08 20:15 | XMS_ITS | Encounter Summary ---
Author Organization [facility] Address 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 [place], [place] [address] Admit Date: 05/14/2009 HARRISON MARCUM Sex: F Admit Prov: CHAVO TONEY Date: 1950 Primary Care Prov: YUNG OMERO Roque CMRN: [id number] [facility]: [id number] IMAGING SERVICES Ordering Prov: BRAVOCHAVO MARTÍNEZ Interpretation [...] AM CDT Narrative 05/15/2009 7:34 AM CDT [address] [address] Admit Date: 05/14/2009 HARRISON MARCUM Sex: F Admit Prov: CHAVO TONEY Date: 1950 Primary Care Prov: OMERO BARRAGAN CMRN: [id number] Room: [facility] SSN: [id number] IMAGING SERVICES Ordering Prov: CHAVO TONEY Accession Number: [id number] Interpretation LEFT DIAGNOSTIC DIGITAL MAMMOGRAMS WITH COMPUTER [...] finding Recommendation: Normal interval follow-up Dictated by: RSI BOTELLO Electronically signed by: SRI BOTELLO 05/15/2009 07:34 Transcribed: 05/14/2009 10:07 AMK Procedure Note Sri Botello - 05/15/2009 [address] [place], [place] [address] Admit Date: 05/14/2009 HARRISON MARCUM Sex: F Admit Prov: CHAVO TONEY Date: 1950 Primary Care Prov: YUNG OMERO J CMRN: [id number] [facility] [id number] IMAGING SERVICES Ordering Prov: CHAVO TONEY Interpretation [...] unspecified documented in this encounter Care Teams Payroll Processor Relationship Specialty Start Date End Date Christoph Delarosa MD PCP - General Internal Medicine 06/19/14 documented as of this encounter
--- OUTSIDE RECORDS SUMMARY | 2025-08-08 20:15 | XMS_ITS | Encounter Summary ---
Author Organization [facility] Address [facility] [place] [address] Care Team Providers Care Digital Marketing Officer Name Role Phone Christoph Delarosa MD Primary Care Provider [phone] Rosy Mathew MD Unavailable [phone] Rosy Mathew MD Primary Care Provider [phone] Jerrell Javier-C Primary Care Provider [phone] Angela Cottrell [facility] Primary Care Provider + Angela Cottrell [facility] Primary Care Provider + Ana Laura Cassidy MD Primary Care Provider [phone] Encounter Details Date Type Department Care Team (Late st Contact Info) Description 05/22/[address] [facility] CONVERSION [address] [place] [address] , Hugo Jerome MD Social History Tobacco Use Types Packs/Day Years Used Date Smoking Tobacco: Never Comments Unknown Sex and Gender Information Value Date Recorded Sex Assigned at Female 12/03/2024 1:23 PM LICENSED SALES ASSISTANT Legal Sex Female 10:54 PM CDT Gender Identity Female 01/07/2025 1:23 PM CDT Sexual Orientation Not on file documented as of this encounter Plan of Treatment Upcoming Encounters Date Type Department Care Team (Late st Contact Info) Description 08/26/2025 1:00 PM LICENSED SALES ASSISTANT Office Visit [facility] Orthopedic & Sports Medicine - [place] [address] [place] [address] Jamarcus George MD [address] [place] [address] 12/09/2025 1:40 PM CDT Office Visit [facility] Family & Internal Medicine [facility] [address] [place] [address] [place] [address] [facility]. [address] [place] [address] documented as of this encounter Visit Diagnoses Not on filedocumented in this encounter Care Teams Digital Marketing Officer Relationship Specialty Start Date End Date Christoph Delarosa MD PCP - General 08/01/14 10/29/18 Rosy Mathew MD PCP - Med Group - [facility] Attributed Provider INTERNAL MEDICINE 12/01/18 10/03/20 Rosy Mathew MD PCP - General INTERNAL MEDICINE 05/07/19 02/11/20 Jerrell Javier PA-C PCP - General PHYSICIAN IN HOUSE CRA 02/12/20 03/05/24 Angela Cottrell FNP- PCP - General Nurse Practitioner Family 03/07/24 11/28/24 Angela Cottrell FNP- PCP - General Nurse Practitioner Family 03/06/24 03/06/24 [place] [address] [facility] [place] [address] PCP - General FAMILY PRACTICE 11/29/24 documented as of this encounter
--- OUTSIDE RECORDS SUMMARY | 2025-08-08 20:15 | XMS_ITS | Encounter Summary ---
Author Organization [facility] Address [address] [place] [address] Care Team Providers Care Casino Games Dealer Name Role Phone Christoph Delarosa MD Primary Care Provider [phone] Encounter Details Date Type Department Care Team (Late st Contact Info) Description 04/10/2004 Outpatient Historical HIS [facility] Chavo Carlson MD [address] [place] [phone] SCREENING MAMM-MAILG NEOPL-OTHER (Primary Dx) Social History Tobacco Use Types Packs/Day Years Used Date Smoking Tobacco: Never Assessed Comments Unknown Sex and Gender Information Value Date Recorded Sex Assigned at Not on file Legal Sex Female 2:47 AM NON DESTRUCTIVE EVALUATION MANAGER Gender Identity Not on file Sexual Orientation Not on file documented as of this encounter Plan of Treatment Not on file documented as of this encounter Visit Diagnoses Diagnosis Other screening mammogram- Primary documented in this encounter Care Teams Casino Games Dealer Relationship Specialty Start Date End Date Christoph Delarosa MD PCP - General Internal Medicine 06/19/14 documented as of this encounter
--- OUTSIDE RECORDS SUMMARY | 2025-08-08 20:15 | XMS_ITS | Encounter Summary ---
Author Organization [facility] Address [address] [place] [address] Care Team Providers Care General Road Production Manager Name Role Phone Christoph Delarosa MD Primary Care Provider Encounter Details Date Type Department Care Team (Late st Contact Info) Description 04/26/2001 Outpatient Historical HIS [facility] Chavo Carlson MD [address] [place] [phone] Gynecological examination (Primary Dx) Social History Tobacco Use Types Packs/Day Years Used Date Smoking Tobacco: Never Assessed Comments Unknown Sex and Gender Information Value Date Recorded Sex Assigned at Not on file Legal Sex Female 2:47 AM PSYCH COORDINATOR Gender Identity Not on file Sexual Orientation Not on file documented as of this encounter Plan of Treatment Not on file documented as of this encounter Visit Diagnoses Diagnosis Gynecological examination- Primary documented in this encounter Care Teams General Road Production Manager Relationship Specialty Start Date End Date Christoph Delarosa MD PCP - General Internal Medicine 06/19/14 documented as of this encounter
--- OUTSIDE RECORDS SUMMARY | 2025-08-08 20:15 | XMS_ITS | Encounter Summary ---
Author Organization [facility] Address [address] [place] [address] Care Team Providers Care Apple Thinner Name Role Phone Christoph Delarosa MD Primary Care Provider [phone] Rosy Mathew MD Unavailable [phone] Rosy Mathew MD Primary Care Provider + [phone] Jerrell Javier-C Primary Care Provider [phone] Angela Cottrell [facility] Primary Care Provider + Angela Cottrell [facility] Primary Care Provider + Ana Laura Cassidy MD Primary Care Provider [phone] Encounter Details Date Type Department Care Team (Latest Contact Info) Description 06/26/2018 Abstract [facility] Hugo Blandon MD Social History Tobacco Use Types Packs/Day Years Used Date Smoking Tobacco: Never Comments Unknown Sex and Gender Information Value Date Recorded Sex Assigned at Female 12/03/2024 1:23 PM GRINDER SET UP OPERATOR JIG Legal Sex Female 10:54 PM CDT Gender Identity Female 01/07/2025 1:23 PM CDT Sexual Orientation Not on file documented as of this encounter Plan of Treatment Upcoming Encounters Date Type Department Care Team (Late st Contact Info) Description 08/26/2025 1:00 PM GRINDER SET UP OPERATOR JIG Office Visit [facility] Orthopedic & Sports Medicine - [place] [address] [place] [address] Jamarcus George MD [address] [place] [address] 12/09/2025 1:40 PM CDT Office Visit [facility] Family & Internal Medicine [facility] [address] [place] [address] [place] [address] [facility]. [address] [place] [address] documented as of this encounter Visit Diagnoses Not on filedocumented in this encounter Care Teams Apple Thinner Relationship Specialty Start Date End Date Christoph Delarosa MD PCP - General 08/01/14 10/29/18 Rosy Mathew MD PCP - Med Group - [facility] Attributed Provider INTERNAL MEDICINE 12/01/18 10/03/20 Rosy Mathew MD PCP - General INTERNAL MEDICINE 05/07/19 02/11/20 Jerrell Javier PA-C PCP - General PHYSICIAN DIRECTOR OF INFECTION PREVENTION 02/12/20 03/05/24 Angela Cottrell [facility] PCP - General Nurse Practitioner Family 03/07/24 11/28/24 Angela Cottrell CLAY MOLDER- PCP - General Nurse Practitioner Family 03/06/24 03/06/24 [place] [address] [facility]. [address] [place] [address] PCP - General FAMILY PRACTICE 11/29/24 documented as of this encounter
--- OUTSIDE RECORDS SUMMARY | 2025-08-08 20:15 | XMS_ITS | Encounter Summary ---
Author Organization [facility] Address [address] [place] [address] Care Team Providers Care Perfume Maker Name Role Phone Christoph Delarosa MD Primary Care Provider [phone] Encounter Details Date Type Department Care Team (Latest Contact Info) Description 02/16/2007 Outpatient Historical [place] [address] [facility] [address] [place] [address] Mitral Valve Disorders (Primary Dx) Social History Tobacco Use Types Packs/Day Years Used Date Smoking Tobacco: Never Assessed Comments Unknown Sex and Gender Information Value Date Recorded Sex Assigned at Not on file Legal Sex Female 2:47 AM PAPERBOARD BOX MAKER Gender Identity Not on file Sexual Orientation Not on file documented as of this encounter Plan of Treatment Not on file documented as of this encounter Visit Diagnoses Diagnosis Mitral valve disorders(424.0)- Primary Mitral valve disorders documented in this encounter Care Teams Perfume Maker Relationship Specialty Start Date End Date Christoph Delarosa MD PCP - General Internal Medicine 06/19/14 documented as of this encounter
--- OUTSIDE RECORDS SUMMARY | 2025-08-08 20:15 | XMS_ITS | Encounter Summary ---
Author Organization [facility] Address [address] [facility] [address] [place]: Epic Prelude ADT MEG COREAS [address] Care Team Providers Care Milking Machine Operator Name Role Phone Christoph Delarosa MD Primary Care Provider Encounter Details Date Type Department Care Team (Late st Contact Info) Description 07/21/1992 Outpatient Historical Babak Davidson Social History Tobacco Use Types Packs/Day Years Used Date Smoking Tobacco: Never Assessed Comments Unknown Sex and Gender Information Value Date Recorded Sex Assigned at Not on file Legal Sex Female 2:47 AM ASSOCIATE PROGRAMMER ANALYST Gender Identity Not on file Sexual Orientation Not on file documented as of this encounter Plan of Treatment Not on file documented as of this encounter Visit Diagnoses Not on filedocumented in this encounter Care Teams Milking Machine Operator Relationship Specialty Start Date End Date Christoph Delarosa MD PCP - General Internal Medicine 06/19/14 documented as of this encounter
--- OUTSIDE RECORDS SUMMARY | 2025-08-08 20:15 | XMS_ITS | Encounter Summary ---
Author Organization [facility] Address [address] [place] [address] Care Team Providers Care Title Curative Specialist Name Role Phone Ana Laura Cassidy MD Primary Care Provider [phone] Reason for Referral * Consultation (Routine) - New Request Specialty Diagnoses / Procedures Referred By Sharath brandon Referred To Contact ORTHOPAEDICS Diagnoses Arthritis of finger of left hand Procedures OFFICE/OUTPATIENT NEW LOW MDM 30-44 MINUTES OFFICE/OUTPT VISIT,NEW,LEVL IV OFFICE/OUTPT VISIT,NEW,LEVL V OFFICE/OUTPT VISIT,EST,LEVL III OFFICE/OUTPT VISIT,EST,LEVL IV OFFICE/OUTPT VISIT,EST,[place] [address] [facility] [place] [address] Phone: tel: fax: Jamarcus George MD [address] [place] [address] Phone: tel: fax: Referral ID Status Reason Start Date Expiration Date Visits Requested Visits Authorized [id number] New Request Specialty Services 5 08/18/2026 1 1 Encounter Details Date Type Department Care Team (Late st Contact Info) Description 07/17/2025 Results Follow-Up [facility] Family & Internal Medicine - [place] [address] [place] [address] [place] [address] [facility] [address] [place] [address] URIC ACID BLOOD, BASIC METABOLIC PANEL, XR THIRD FINGER LT 3V Social History Tobacco Use Types Packs/Day Years Used Date Smoking Tobacco: Never Smokeless Tobacco: Never Alcohol Use Standard Drinks/Week Comments Not Currently [...] Sex Assigned at Female 12/03/2024 1:23 PM X RAY OPERATOR Legal Sex Female 10:54 PM CDT Gender Identity Female 01/07/2025 1:23 PM CDT Sexual Orientation Not on file documented as of this encounter Plan of Treatment Upcoming Encounters Date Type Department Care Team (Late st Contact Info) Description 08/26/2025 1:00 PM X RAY OPERATOR Office Visit [facility] Orthopedic & Sports Medicine [facility] [address] [place] [address] Jamarcus George MD [address] [place] [address] 12/09/2025 1:40 PM CDT Office Visit [facility] Family & Internal Medicine [facility] [address] [place] [address] [place] [address] [address] [place] [address] Scheduled Referrals Name Type Priority Associated Diagnoses Orde r Schedule Ambulatory referral to Orthopedics (OTHER) Referral Routine Arthritis of finger of left hand Ordered: 07/18/2025 documented as of this encounter Visit Diagnoses Diagnosis Arthritis of finger of left hand- Primary documented in this encounter Additional Health Concerns Assessment Noted Time PHQ-9 Depression Total Score: 0 01/08/20 1:37 PM CDT documented as of this encounter Care Teams Title Curative Specialist Relationship Specialty Start [place] [address] [facility] [address]. [address] [place] [address] PCP - General FAMILY PRACTICE 11/29/24 documented as of this encounter
--- OUTSIDE RECORDS SUMMARY | 2025-08-08 20:15 | XMS_ITS | Encounter Summary ---
Author Organization [facility] Address [address] [place] [address] Care Team Providers Care Distribution Engineer Name Role Phone Christoph Delarosa MD Primary Care Provider [phone] Rosy Mathew MD Unavailable [phone] Rosy Mathew MD Primary Care Provider [phone] Jerrell Javier-C Primary Care Provider [phone] [facility] Primary Care Provider + Angela Cottrell [facility] Primary Care Provider + Ana Laura Cassidy MD Primary Care Provider [phone] Encounter Details Date Type Department Care Team (Latest Contact Info) Description 08/08/2018 Abstract [facility] Hugo Blandon MD Social History Tobacco Use Types Packs/Day Years Used Date Smoking Tobacco: Never Comments Unknown Sex and Gender Information Value Date Recorded Sex Assigned at Female 12/03/2024 1:23 PM RN SUPPORT SERVICES Legal Sex Female 10:54 PM CDT Gender Identity Female 01/07/2025 1:23 PM CDT Sexual Orientation Not on file documented as of this encounter Plan of Treatment Upcoming Encounters Date Type Department Care Team (Late st Contact Info) Description 08/26/2025 1:00 PM RN SUPPORT SERVICES Office Visit [facility] Orthopedic & Sports Medicine - [place] [address] [place] [address] Jamarcus George MD [address] [place] [address] 12/09/2025 1:40 PM CDT Office Visit [facility] Family & Internal Medicine [facility] [address] [place] [address] [place] [address] [facility]. [address] [place] [address] documented as of this encounter Visit Diagnoses Not on filedocumented in this encounter Care Teams Distribution Engineer Relationship Specialty Start Date End Date Christoph Delarosa MD PCP - General 08/01/14 10/29/18 Rosy Mathew MD PCP - [facility] - [facility] Attributed Provider INTERNAL MEDICINE 12/01/18 10/03/20 Rosy Mathew MD PCP - General INTERNAL MEDICINE 05/07/19 02/11/20 Jerrell Javier PA-C PCP - General PHYSICIAN INNER TUBE CUTTER 02/12/20 03/05/[address] [facility] PCP - General Nurse Practitioner Family 03/07/24 11/28/24 Angela Cottrell PLASTIC TILE LAYER- PCP - General Nurse Practitioner Family 03/06/24 03/06/24 [place] [address] [facility]. [address] [place] [address] PCP - General FAMILY PRACTICE 11/29/24 documented as of this encounter
--- OUTSIDE RECORDS SUMMARY | 2025-08-08 20:15 | XMS_ITS | Encounter Summary ---
Author Organization [facility] Address [address] [place] [address] Care Team Providers Care Petroleum Terminal Plant Operator Name Role Phone Christoph Delarosa MD Primary Care Provider [phone] Encounter Details Date Type Department Care Team (Late st Contact Info) Description 05/25/2006 Outpatient Historical HIS [facility] Chavo Carlson MD [address] [place] [address] Other Screening Mammogram (Primary Dx) Social History Tobacco Use Types Packs/Day Years Used Date Smoking Tobacco: Never Assessed Comments Unknown Sex and Gender Information Value Date Recorded Sex Assigned at Not on file Legal Sex Female 2:47 AM RESPIRATORY PHYSICIAN Gender Identity Not on file Sexual Orientation Not on file documented as of this encounter Plan of Treatment Not on file documented as of this encounter Visit Diagnoses Diagnosis Other screening mammogram- Primary documented in this encounter Care Teams Petroleum Terminal Plant Operator Relationship Specialty Start Date End Date Christoph Delarosa MD PCP - General Internal Medicine 06/19/14 documented as of this encounter
--- OUTSIDE RECORDS SUMMARY | 2025-08-08 20:15 | XMS_ITS | Encounter Summary ---
Author Organization [facility] Address [address] [place] [address] Care Team Providers Care Security Risk Analyst Name Role Phone Christoph Delarosa MD Primary Care Provider [phone] Encounter Details Date Type Department Care Team (Late st Contact Info) Description 05/05/2009 Outpatient Historical HIS [facility] Chavo Carlson MD [address] [place] [address] Other Screening Mammogram Social History Tobacco Use Types Packs/Day Years Used Date Smoking Tobacco: Never Assessed Comments Unknown Sex and Gender Information Value Date Recorded Sex Assigned at Not on file Legal Sex Female 2:47 AM INFORMATION SERVICES TECH Gender Identity Not on file Sexual Orientation [...] PM CDT Narrative 05/07/2009 8:23 AM CDT [address] [address] Admit Date: 05/05/2009 HARRISON MARCUM Sex: F Admit Prov: CHAVO TONEY Date: 1950 Primary Care Prov: OMERO BARRAGAN CMRN: [id number] Room: SMITHA N: [id number] IMAGING SERVICES Ordering Prov: CHAVO TONEY Accession Number: [id number] Interpretation Bilateral full field digital screening mammograms [...] [facility] Procedure Note Sri Botello - 05/07/2009 [place] [address] [place], [place] [address] Admit Date: 05/05/2009 HARRISON MARCUM Sex: F Admit Prov: CHAVO TONEY Date: 1950 Primary Care Prov: OMERO BARRAGAN CMRN: [id number] Room: Miriam SSN: [id number] IMAGING SERVICES Ordering Prov: CHAVO TONEY Interpretation [...] mammogram documented in this encounter Care Teams Security Risk Analyst Relationship Specialty Start Date End Date Christoph Delarosa MD PCP - General Internal Medicine 06/19/14 documented as of this encounter
== END 2025-08-08 13:46 | disposition home or self-care (01) ==
PROVIDERS: PCP Family Medicine; Visit Provider Family Medicine
DX: R00.1 Bradycardia, unspecified (principal); I10 Essential (primary) hypertension
CPT/HCPCS: 93306